=== PATIENT | male | born 1955 | race Caucasian/White ===

== ENCOUNTER → 2016-07-06 | Outpatient (CLI) | payer OTHER ==
[~2016-07-06] MED LIST: /OXAZ10CA PO; AMLO10TA2 PO; FOLITAB11 PO; IBUP600T26 PO; LISI40TAB PO; NEUR300C PO; NICO21PAT TD; VITA100T2 PO; VITMTA PO
--- NOTE | 2016-07-06 10:42 | REP ---
ULTRASOUND OF THE ABDOMINAL AORTA: Real-time sonographic evaluation of the abdominal aorta performed and compared to a prior study of 10/17/2015. There is no significant change when compared to the prior exam. The proximal abdominal aorta measures 1.8 x 2.8 cm, mid aspect 2.4 x 2.6 cm, and distally, there is mild aneurysmal dilatation, 4.2 x 3.5 cm. This extends for a length of about 7 to 8 cm. The common iliac arteries are slightly ectatic, right measuring 1.1 x 1.3 cm and the left 1.1 x 1.4 cm. Thrombus is seen in the aneurysm with residual patent lumen 2.1 x 3.5 cm. The study is somewhat limited due to overlying bowel gas. IMPRESSION: Fusiform aneurysm, distal abdominal aorta appears essentially unchanged compared to the prior study of 10/17/2015. It measures 4.2 x 3.5 cm. Signed by Nayan Bell MD 07/06/2016 01:13 P
== END ==
LOC: M RAD 08:44
PROVIDERS: ATTEND Surgery
DX: I71.4 Abdominal aortic aneurysm, without rupture (principal)

== ENCOUNTER → 2017-03-13 | Outpatient (CLI) | payer OTHER ==
--- NOTE | 2017-03-13 14:04 | REP ---
Left knee series: Five views. History: Knee joint pain. Findings: Five views of the left knee demonstrate mild articular spurring at the superior pole the patella on lateral radiograph. There is mild vascular calcification. Bones, joints and soft tissues are otherwise unremarkable. Impression: Mild patellar spurring. Vascular calcification. No significant change from the May 18, 2014 prior study. Signed by Ash Brown MD 03/13/2017 03:55 P
== END ==
LOC: M RAD 12:48
PROVIDERS: ATTEND Family Medicine Addiction Medicine
DX: M25.562 Pain in left knee (principal)

== ENCOUNTER → 2017-07-18 | Outpatient (CLI) | payer OTHER | LOC: M RAD 09:10 | DX: I71.4 Abdominal aortic aneurysm, without rupture (principal) | CPT/HCPCS: 76775 ==

== ENCOUNTER 2017-12-12 18:28 | Emergency (ER) | payer OTHER ==
[2017-12-12] MEDS: ADACEL/BOOSTRIX VACCINE (DIPHTH/PERTUSS/ACELL/TETANUS)0.5ML SYR (90715) IM (20:45)
[2017-12-12] MEDS: ERYTHROMYCIN OPHTH OINT OD (20:45)
[2017-12-12] MEDS: TETRACAINE 0.5% OPHTH SOLN 4ML OD (20:45)
[2017-12-12] MEDS: DERMABOND TOPICAL SKIN ADHESIVE TOP (21:15)
== END 2017-12-12 21:45 | disposition home or self-care (01) ==
LOC: M ED 18:28
DX: S02.31XA Fracture of orbital floor, right side, initial encounter for closed fracture (principal); S01.81XA Laceration without foreign body of other part of head, initial encounter; Y04.8XXA Assault by other bodily force, initial encounter; Y92.89 Other specified places as the place of occurrence of the external cause; F17.210 Nicotine dependence, cigarettes, uncomplicated; Z79.899 Other long term (current) drug therapy
CPT/HCPCS: 90715

== ENCOUNTER → 2018-03-19 | Outpatient (REF) | LOC: M SMT 13:21 | DX: Z00.00 Encounter for general adult medical examination without abnormal findings (principal) ==

== ENCOUNTER → 2018-10-07 | Outpatient (CLI) | payer OTHER ==
[~2018-10-07] MED LIST changes: -/OXAZ10CA PO; -AMLO10TA2 PO; +AMLO10TA5 PO; +BACL10TA2 PO; +CETI10TA PO; +CHOL400T PO; +CLEO300C2 PO; +D3400CAP PO; +ERYT1OIN26 OD; +GABA600T4 PO; +LISI-538 PO; +LISI40TA52 PO; -LISI40TAB PO; +MULTCAP PO; +NICO21DI3 TD; -NICO21PAT TD; +OXAZ10CA25 PO
--- NOTE | 2018-10-07 17:28 | REP ---
MR LUMBAR SPINE WITHOUT CONTRAST: HISTORY: Radiculopathy. COMPARISON: 11/19/2015 Decreased signal intensity on T2-weighted images is present in the lumbar intervertebral discs. The discs are decreased in height. These findings are consistent with disc degeneration. There is no disc bulge or herniation at the L1-2 level. The L1 nerves exit the neural foramina without compression. A diffuse disc bulge is present at te L2-3 level. There is minimal compression of the thecal sac. The L2 nerves exit the neural foramina without compression. A diffuse disc bulge and small left paracentral disc protrusion are present at the L3-4 level. There is hypertrophy of the ligamenta flava and posterior articulating facets. These findings produce minimal central canal stenosis. The L3 nerves exit the neural foramina without compression. A diffuse disc bulge is present at the L4-5 level. There is hypertrophy of the ligamenta flava and posterior articulating facets. There findings produce mild central canal stenosis. The L4 nerves exit the neural foramina without compression. A diffuse disc bulge and small central disc extrusion are present at the L5-S1 level. There is minimal compression of the thecal sac. There is hypertrophy of the posterior articulating facets. There is compression of the left L5 nerve in the neural foramen. The right L5 nerve exits the neural foramen without compression. The conus medullaris is normal in appearance terminating at the level of the L1-2 intervertebral disc. A hemangioma is present in the S1 vertebral body. The anterior aspect of the lumbar vertebral bodies is not well seen. There is no definite signal abnormality in the lumbar vertebral bodies. IMPRESSION: 1. Diffuse disc bulge at the L2-3 level with minimal thecal sac compression. 2. Minimal central canal stenosis at the L3-4 level secondary to disc bulge, disc protrusion, ligamentous and facet hypertrophy. This is a new finding. 3. Mild central canal stenosis at the L4-5 level secondary to disc bulge, ligamentous and facet hypertrophy. 4. Diffuse disc bulge and small central disc extrusion at the L5-S1 level with minimal thecal sac compression. There is compression of the left L5 nerve in the neural foramen. There is no other significant change. Electronically Signed by Abbe Barnhart MD 10/08/2018 08:35 A
== END ==
LOC: M RAD 12:58
PROVIDERS: ATTEND Nurse Practitioner Family
DX: M51.26 Other intervertebral disc displacement, lumbar region (principal); M51.27 Other intervertebral disc displacement, lumbosacral region; M48.061 Spinal stenosis, lumbar region without neurogenic claudication

== ENCOUNTER → 2018-10-07 | Outpatient (CLI) | payer OTHER ==
[2018-10-07 16:24] LABS: ALBUMIN 2.9 GM/DL (3.2-5.2); ALT/SGPT 26 U/L (12-78); BILIRUBIN,TOTAL 1.7 MG/DL (0.2-1.0); BLOOD UREA NITROGEN 7 MG/DL (7-18); CALCIUM LEVEL 8.1 MG/DL (8.8-10.2); CARBON DIOXIDE LEVEL 25 MEQ/L (21-32); CHLORIDE LEVEL 111 MEQ/L (98-107); CHOLESTEROL LEVEL 100 MG/DL (<200); CHOLESTEROL RISK RATIO 3.571 (<5); CREATININE FOR GFR 0.76 MG/DL (0.70-1.30); GLOMERULAR FILTRATION RATE > 60.0 (>49); GLUCOSE, FASTING 87 MG/DL (70-100); HDL CHOLESTEROL 28 MG/DL (>40); LDL CHOLESTEROL 57 MG/DL (<100); NON-HDL-C 72 MG/DL; POTASSIUM SERUM 3.5 MEQ/L (3.5-5.1); SODIUM LEVEL 142 MEQ/L (136-145); TOTAL PROTEIN 7.1 GM/DL (6.4-8.2); TRIGLYCERIDES LEVEL 77 MG/DL (<150); URIC ACID 4.4 MG/DL (3.5-7.2)
== END ==
LOC: M LAB 14:54
PROVIDERS: ATTEND Family Medicine Addiction Medicine
DX: E78.5 Hyperlipidemia, unspecified (principal)

== ENCOUNTER → 2018-10-09 | Outpatient (REF) | payer OTHER ==
[2018-10-09 17:51] LABS: BASO % 0.8 % (0.0-1.0); EOS # 0.1 10^3/uL (0.0-0.50); EOS % 2.5 % (0.0-3.0); HEMATOCRIT 36.5 % (42.0-52.0); LYMPH # 1.1 10^3/uL (1.5-4.5); LYMPH % 22.9 % (24.0-44.0); MEAN CORPUSCULAR HEMOGLOBIN 30.8 pg (27.0-33.0); MEAN CORPUSCULAR HGB CONC 32.9 g/dl (32.0-36.5); MEAN CORPUSCULAR VOLUME 93.6 fl (80.0-96.0); MONO # 0.6 10^3/uL (0.0-0.8); MONO % 13.3 % (0.0-5.0); NEUTROPHILS # 2.9 10^3/uL (1.8-7.7); NEUTROPHILS % 60.1 % (36.0-66.0); WHITE BLOOD COUNT 4.8 10^3/uL (4.0-10.0)
[2018-10-09 17:58] LABS: INR 1.37; PROTHROMBIN TIME 17.1 SECONDS (12.1-14.4)
[2018-10-09 17:59] LABS: PARTIAL THROMBOPLASTIN TIME 40.8 SECONDS (25.4-37.6)
[2018-10-09 18:06] LABS: ALBUMIN 3.1 GM/DL (3.2-5.2); ALT/SGPT 22 U/L (12-78); BILIRUBIN,TOTAL 1.8 MG/DL (0.2-1.0); BLOOD UREA NITROGEN 8 MG/DL (7-18); CALCIUM LEVEL 8.2 MG/DL (8.8-10.2); CARBON DIOXIDE LEVEL 23 MEQ/L (21-32); CHLORIDE LEVEL 112 MEQ/L (98-107); CREATININE FOR GFR 0.78 MG/DL (0.70-1.30); GLOMERULAR FILTRATION RATE > 60.0 (>49); GLUCOSE, FASTING 94 MG/DL (70-100); POTASSIUM SERUM 3.4 MEQ/L (3.5-5.1); PROSTATIC SPECIFIC AG MONITOR 1.68 NG/ML (< 4.00); SODIUM LEVEL 141 MEQ/L (136-145); TOTAL PROTEIN 6.9 GM/DL (6.4-8.2)
[2018-10-09 18:12] LABS: TOTAL 25(OH) VITAMIN D 19.5 NG/ML (30.0-100.0)
[2018-10-09 18:52] LABS: PLATELET COUNT, AUTOMATED 68 10^3/uL (150-450)
[2018-10-10 10:10] LABS: PTH INTACT 42.6 PG/ML (18.5-88.0)
[2018-10-10 10:21] LABS: HEPATITIS B SURFACE ANTIGEN NEGATIVE (NEGATIVE)
[2018-10-10 10:46] LABS: HEPATITIS C VIRUS ABY INDEX 0.1 INDEX (<0.8)
== END ==
LOC: M LAB REF 15:49
PROVIDERS: ATTEND Family Medicine Addiction Medicine
DX: R18.8 Other ascites (principal); E83.51 Hypocalcemia

== ENCOUNTER → 2018-10-10 | Outpatient (CLI) | payer OTHER ==
--- NOTE | 2018-10-10 08:20 | REP ---
Clinical: Ascites. Technique: Transabdominal ultrasound examination using curved array transducer. Findings: Cirrhotic changes to the liver along with recanalized umbilical vein identified. Large amount of abdominal ascites noted throughout the visualized abdomen. Chronic gallbladder wall thickening is appreciated without gallstones. No biliary ductal dilatation is appreciated and the common bile duct measures 5.7 mm diameter. The pancreas is incompletely evaluated due to interposed bowel gas. The right kidney measures 12.2 x 5.7 x 4.8 cm without hydronephrosis. Impression: 1. Cirrhosis. 2. Large amount of abdominal ascites. Electronically Signed by Luciano Guzman MD 10/10/2018 08:12 A
== END ==
LOC: M RAD 07:08
PROVIDERS: ATTEND Family Medicine Addiction Medicine
DX: R18.8 Other ascites (principal); K74.60 Unspecified cirrhosis of liver

== ENCOUNTER → 2018-10-23 | Outpatient (CLI) | payer OTHER ==
--- NOTE | 2018-10-23 20:36 | REP ---
Ultrasound-guided paracentesis The procedure was performed by JEISON Doss, under the direct supervision of Dr. Brown. The risks and benefits of the procedure were explained to the patient and informed consent was obtained both verbally and written. Directly prior to the start of the procedure, a formal timeout was completed in the procedure room. Under ultrasound guidance, the largest pocket of fluid in the left flank was localized and skin was marked. The skin was then prepped and draped in a sterile fashion. 10 ml of 1% lidocaine was used as a local anesthetic. Using ultrasound guidance, an 8-Surinamese multiphase side-hole catheter was inserted using trocar technique. 15,350 mL of yellow colored fluid was withdrawn and discarded. The patient tolerated the procedure well and there were no immediate complications. After the appropriate monitored convalescence the patient was discharged from the department. Reviewed by JEISON Gamez 10/23/2018 01:56 P Electronically Signed by Ash Brown MD 10/23/2018 08:28 P
== END ==
LOC: M RADPRO 10:48
PROVIDERS: ATTEND Family Medicine Addiction Medicine
DX: R18.8 Other ascites (principal)

== ENCOUNTER → 2018-11-04 | Outpatient (CLI) | payer OTHER ==
--- NOTE | 2018-11-13 08:56 | REP ---
Ultrasound-guided paracentesis The procedure was performed under the direct supervision of Dr. Bell. The risks and benefits of the procedure were explained to the patient and informed consent was obtained. The largest pocket of fluid was localized in the right flank using ultrasound guidance. The skin was prepped and draped in a sterile fashion. 1% lidocaine was used as a local anesthetic. An 8-Persian multi side-hole catheter was inserted using trocar technique. 13,100 ml of yellow fluid was withdrawn and discarded. The patient tolerated the procedure well and there were no immediate complications. After the appropriate amount of monitored convalescence the patient was discharged from the department. Reviewed by JEISON Amaya 11/04/2018 04:00 P Electronically Signed by Nayan Bell MD 11/04/2018 04:11 P
== END ==
LOC: M RADPRO 13:29
PROVIDERS: ATTEND Family Medicine Addiction Medicine
DX: K70.31 Alcoholic cirrhosis of liver with ascites (principal); Z79.82 Long term (current) use of aspirin; Z79.899 Other long term (current) drug therapy

== ENCOUNTER → 2018-11-12 | Outpatient (CLI) | payer MEDICAID, OTHER ==
--- NOTE | 2018-11-12 20:08 | REP ---
Ultrasound-guided paracentesis The procedure was performed by JEISON Doss, under the direct supervision of Dr. Bell. The risks and benefits of the procedure were explained to the patient and informed consent was obtained both verbally and written. Directly prior to the start of the procedure, a formal timeout was completed in the procedure room. Under ultrasound guidance, the largest pocket of fluid in the left flank was localized and skin was marked. The skin was then prepped and draped in a sterile fashion. 10 ml of 1% lidocaine was used as a local anesthetic. Using ultrasound guidance, an 8-Setswana multiphase side-hole catheter was inserted using trocar technique. 11,900 mL of clear yellow colored fluid was withdrawn and discarded. The patient tolerated the procedure well and there were no immediate complications. After the appropriate monitored convalescence the patient was discharged from the department. Reviewed by JEISON Gamez 11/12/2018 03:25 P Electronically Signed by Nayan Bell MD 11/12/2018 07:59 P
== END ==
LOC: M RADPRO 13:17
PROVIDERS: ATTEND Family Medicine Addiction Medicine
DX: R18.8 Other ascites (principal); Z79.899 Other long term (current) drug therapy

== ENCOUNTER → 2018-11-19 | Outpatient (CLI) | payer OTHER, MEDICAID ==
--- NOTE | 2018-11-19 18:20 | REP ---
Ultrasound-guided paracentesis The procedure was performed by JEISON Doss, under the direct supervision of Dr. Brown. The risks and benefits of the procedure were explained to the patient and informed consent was obtained both verbally and written. Directly prior to the start of the procedure, a formal timeout was completed in the procedure room. Under ultrasound guidance, the largest pocket of fluid in the right flank was localized and skin was marked. The skin was then prepped and draped in a sterile fashion. 10 ml of 1% lidocaine was used as a local anesthetic. Using ultrasound guidance, an 8-Japanese multi side-hole catheter was inserted using trocar technique. 10,850 mL of clear yellow colored fluid was withdrawn and discarded. The patient tolerated the procedure well and there were no immediate complications. After the appropriate monitored convalescence the patient was discharged from the department. Reviewed by JEISON Gamez 11/19/2018 02:52 P Electronically Signed by Ash Brown MD 11/19/2018 06:11 P
== END ==
LOC: M RADPRO 13:04
PROVIDERS: ATTEND Family Medicine Addiction Medicine
DX: R18.8 Other ascites (principal); K70.31 Alcoholic cirrhosis of liver with ascites; Z79.899 Other long term (current) drug therapy

== ENCOUNTER → 2018-11-25 | Outpatient (CLI) | payer OTHER, MEDICAID ==
[2018-11-25 13:02] LABS: BASO # 0.1 10^3/uL (0.0-0.2); BASO % 0.8 % (0.0-1.0); EOS # 0.2 10^3/uL (0.0-0.50); EOS % 2.7 % (0.0-3.0); HEMATOCRIT 37.7 % (42.0-52.0); HEMOGLOBIN 12.8 g/dl (13.5-17.5); LYMPH # 1.5 10^3/uL (1.5-4.5); LYMPH % 23.5 % (24.0-44.0); MEAN CORPUSCULAR HEMOGLOBIN 31.9 pg (27.0-33.0); MONO # 0.7 10^3/uL (0.0-0.8); NEUTROPHILS # 3.8 10^3/uL (1.8-7.7); NEUTROPHILS % 61.8 % (36.0-66.0); RED BLOOD COUNT 4.01 10^6/uL (4.30-6.10); WHITE BLOOD COUNT 6.2 10^3/uL (4.0-10.0)
[2018-11-25 13:13] LABS: INR 1.38; PROTHROMBIN TIME 17.2 SECONDS (12.1-14.4)
[2018-11-25 13:14] LABS: PARTIAL THROMBOPLASTIN TIME 37.3 SECONDS (25.4-37.6)
[2018-11-25 13:27] LABS: ALBUMIN 2.7 GM/DL (3.2-5.2); ALT/SGPT 36 U/L (12-78); BILIRUBIN,DIRECT 0.6 MG/DL (0.0-0.2); BILIRUBIN,TOTAL 1.6 MG/DL (0.2-1.0); BLOOD UREA NITROGEN 11 MG/DL (7-18); CALCIUM LEVEL 8.4 MG/DL (8.8-10.2); CARBON DIOXIDE LEVEL 25 MEQ/L (21-32); CHLORIDE LEVEL 107 MEQ/L (98-107); CREATININE FOR GFR 0.83 MG/DL (0.70-1.30); GLOMERULAR FILTRATION RATE > 60.0 (>49); GLUCOSE, FASTING 97 MG/DL (70-100); POTASSIUM SERUM 3.5 MEQ/L (3.5-5.1); SODIUM LEVEL 139 MEQ/L (136-145); TOTAL PROTEIN 6.7 GM/DL (6.4-8.2)
[2018-11-25 13:40] LABS: PLATELET COUNT, AUTOMATED 91 10^3/uL (150-450)
== END ==
LOC: M LAB 12:20
PROVIDERS: ATTEND Internal Medicine Gastroenterology
DX: K70.31 Alcoholic cirrhosis of liver with ascites (principal)

== ENCOUNTER → 2018-11-25 | Outpatient (CLI) | payer OTHER, MEDICAID ==
[2018-11-25 15:41] LABS: SOURCE, BODY FLUID ALBUMIN ASCITES; SOURCE, BODY FLUID TOT PROTEIN ASCITES; TOTAL PROTEIN, BODY FLUID 0.8 G/DL (NOT ESTABLISHED)
[2018-11-25 15:59] LABS: APPEARANCE, BODY FLUID HAZY (CLEAR); ASCITES FL COLOR COLORLESS (COLORLESS); SOURCE, BODY FLUID ASCITES
--- NOTE | 2018-11-25 16:32 | REP ---
Ultrasound-guided paracentesis The procedure was performed by JEISON Doss, under the direct supervision of Dr. Bell. The risks and benefits of the procedure were explained to the patient and informed consent was obtained both verbally and written. Directly prior to the start of the procedure, a formal timeout was completed in the procedure room. Under ultrasound guidance, the largest pocket of fluid in the right flank was localized and skin was marked. The skin was then prepped and draped in a sterile fashion. 10 ml of 1% lidocaine was used as a local anesthetic. Using ultrasound guidance, an 8-Montserratian multi side-hole catheter was inserted using trocar technique. 9,800 mL of clear yellow colored fluid was withdrawn and discarded. 200 ml was sent to the lab for further analysis. A total of 10,000 ml was withdrawn. The patient tolerated the procedure well and there were no immediate complications. After the appropriate monitored convalescence the patient was discharged from the department. Reviewed by JEISON Gamez 11/25/2018 03:22 P Electronically Signed by Nayan Bell MD 11/25/2018 04:23 P
== END ==
LOC: M RADPRO 11:25
PROVIDERS: ATTEND Family Medicine Addiction Medicine
DX: K70.31 Alcoholic cirrhosis of liver with ascites (principal); D19.1 Benign neoplasm of mesothelial tissue of peritoneum

== ENCOUNTER → 2018-12-02 | Outpatient (CLI) | payer OTHER, MEDICAID ==
[~2018-12-02] MED LIST changes: +FURO40TA2 PO; +SPIR50TA4 PO
--- NOTE | 2018-12-02 15:53 | REP ---
Ultrasound-guided paracentesis The procedure was performed by JEISON Doss, under the direct supervision of Dr. Brown. The risks and benefits of the procedure were explained to the patient and informed consent was obtained both verbally and written. Directly prior to the start of the procedure, a formal timeout was completed in the procedure room. Under ultrasound guidance, the largest pocket of fluid in the left flank was localized and skin was marked. The skin was then prepped and draped in a sterile fashion. 10 ml of 1% lidocaine was used as a local anesthetic. Using ultrasound guidance, an 8-Northern Irish multi side-hole catheter was inserted using trocar technique. 8,400 mL of dark red tinged colored fluid was withdrawn and discarded. The patient tolerated the procedure well and there were no immediate complications. After the appropriate monitored convalescence the patient was discharged from the department. Reviewed by JEISON Gamez 12/02/2018 02:22 P Electronically Signed by Ash Brown MD 12/02/2018 03:44 P
== END ==
LOC: M RADPRO 11:29
PROVIDERS: ATTEND Family Medicine Addiction Medicine
DX: K70.31 Alcoholic cirrhosis of liver with ascites (principal); Z79.899 Other long term (current) drug therapy

== ENCOUNTER → 2018-12-04 | Outpatient (CLI) | payer MEDICAID ==
[~2018-12-04] MED LIST changes: -FURO40TA2 PO; -SPIR50TA4 PO
[2018-12-04 14:30] LABS: BASO # 0.1 10^3/uL (0.0-0.2); BASO % 0.9 % (0.0-1.0); EOS # 0.3 10^3/uL (0.0-0.50); EOS % 4.2 % (0.0-3.0); HEMATOCRIT 37.3 % (42.0-52.0); HEMOGLOBIN 12.5 g/dl (13.5-17.5); LYMPH # 1.5 10^3/uL (1.5-4.5); LYMPH % 21.9 % (24.0-44.0); MEAN CORPUSCULAR HEMOGLOBIN 31.7 pg (27.0-33.0); MEAN CORPUSCULAR HGB CONC 33.5 g/dl (32.0-36.5); MEAN CORPUSCULAR VOLUME 94.7 fl (80.0-96.0); MONO # 0.8 10^3/uL (0.0-0.8); MONO % 12.5 % (0.0-5.0); NEUTROPHILS % 60.2 % (36.0-66.0); PLATELET COUNT, AUTOMATED 87 10^3/uL (150-450); RED BLOOD COUNT 3.94 10^6/uL (4.30-6.10); WHITE BLOOD COUNT 6.6 10^3/uL (4.0-10.0)
[2018-12-04 14:57] LABS: BLOOD UREA NITROGEN 15 MG/DL (7-18); CALCIUM LEVEL 8.1 MG/DL (8.8-10.2); CARBON DIOXIDE LEVEL 28 MEQ/L (21-32); CHLORIDE LEVEL 105 MEQ/L (98-107); CREATININE FOR GFR 0.89 MG/DL (0.70-1.30); GLOMERULAR FILTRATION RATE > 60.0 (>49); GLUCOSE, FASTING 117 MG/DL (70-100); SODIUM LEVEL 139 MEQ/L (136-145)
== END ==
LOC: M LAB 14:01
PROVIDERS: ATTEND Internal Medicine Gastroenterology
DX: K70.31 Alcoholic cirrhosis of liver with ascites (principal)

== ENCOUNTER → 2018-12-09 | Outpatient (CLI) | payer OTHER, MEDICAID ==
[~2018-12-09] MED LIST changes: +FOLI1TAB11 PO; +FURO40TA2 PO; +SPIR50TA4 PO
--- NOTE | 2018-12-09 16:07 | REP ---
Ultrasound-guided paracentesis The procedure was performed by JEISON Doss, under the direct supervision of Dr. Bell. The risks and benefits of the procedure were explained to the patient and informed consent was obtained both verbally and written. Directly prior to the start of the procedure, a formal timeout was completed in the procedure room. Under ultrasound guidance, the largest pocket of fluid in the left flank was localized and skin was marked. The skin was then prepped and draped in a sterile fashion. 10 ml of 1% lidocaine was used as a local anesthetic. Using ultrasound guidance, an 8-Setswana multi side-hole catheter was inserted using trocar technique. 7,000 mL of dark yellow colored fluid was withdrawn and discarded. The patient tolerated the procedure well and there were no immediate complications. After the appropriate monitored convalescence the patient was discharged from the department. Reviewed by JEISON Gamez 12/09/2018 02:54 P Electronically Signed by Nayan Bell MD 12/09/2018 03:58 P
== END ==
LOC: M RADPRO 11:41
PROVIDERS: ATTEND Family Medicine Addiction Medicine
DX: K70.31 Alcoholic cirrhosis of liver with ascites (principal); Z79.899 Other long term (current) drug therapy

== ENCOUNTER → 2018-12-15 | Outpatient (CLI) | payer OTHER ==
[~2018-12-15] MED LIST changes: +VITAMIN B1 PO
[2018-12-15 13:49] LABS: BLOOD UREA NITROGEN 23 MG/DL (7-18); CALCIUM LEVEL 8.4 MG/DL (8.8-10.2); CARBON DIOXIDE LEVEL 27 MEQ/L (21-32); CHLORIDE LEVEL 103 MEQ/L (98-107); CREATININE FOR GFR 0.95 MG/DL (0.70-1.30); GLOMERULAR FILTRATION RATE > 60.0 (>49); GLUCOSE, FASTING 102 MG/DL (70-100); POTASSIUM SERUM 3.8 MEQ/L (3.5-5.1); SODIUM LEVEL 137 MEQ/L (136-145)
== END ==
LOC: M LAB 12:54
PROVIDERS: ATTEND Internal Medicine Gastroenterology
DX: K70.31 Alcoholic cirrhosis of liver with ascites (principal)

== ENCOUNTER → 2018-12-17 | Outpatient (CLI) | payer OTHER ==
[2018-12-17 14:32] VITALS: BP 114/70
--- NOTE | 2018-12-17 20:38 | REP ---
Ultrasound-guided paracentesis The procedure was performed by JEISON Doss, under the direct supervision of Dr. Bell. The risks and benefits of the procedure were explained to the patient and informed consent was obtained both verbally and written. Directly prior to the start of the procedure, a formal timeout was completed in the procedure room. Under ultrasound guidance, the largest pocket of fluid in the right flank was localized and skin was marked. The skin was then prepped and draped in a sterile fashion. 10 ml of 1% lidocaine was used as a local anesthetic. Using ultrasound guidance, an 8-Lithuanian multi side-hole catheter was inserted using trocar technique. 4,700 mL of dark yellow colored fluid was withdrawn and discarded. The patient tolerated the procedure well and there were no immediate complications. After the appropriate monitored convalescence the patient was discharged from the department. Reviewed by JEISON Gamez 12/17/2018 04:10 P Electronically Signed by Nayan Bell MD 12/17/2018 08:29 P
== END ==
LOC: M RADPRO 12:43 → EEVIPCON 12:43
PROVIDERS: ATTEND Family Medicine Addiction Medicine
DX: K70.31 Alcoholic cirrhosis of liver with ascites (principal); Z79.899 Other long term (current) drug therapy

== ENCOUNTER 2018-12-23 11:40 | Outpatient (CLI) | payer OTHER ==
[~2018-12-23 11:40] MED LIST changes: -VITAMIN B1 PO
[2018-12-23] MEDS ORDERED: VITAMIN B1 PO (12:58)
[2018-12-23 14:11] VITALS: BP 108/63
--- NOTE | 2018-12-23 17:31 | REP ---
Ultrasound-guided paracentesis The procedure was performed by JEISON Doss, under the direct supervision of Dr. Bell. The risks and benefits of the procedure were explained to the patient and informed consent was obtained both verbally and written. Directly prior to the start of the procedure, a formal timeout was completed in the procedure room. Under ultrasound guidance, the largest pocket of fluid in the right flank was localized and skin was marked. The skin was then prepped and draped in a sterile fashion. 10 ml of 1% lidocaine was used as a local anesthetic. Using ultrasound guidance, an 8-Ghanaian multi side-hole catheter was inserted using trocar technique. 3,950 mL of cloudy yellow colored fluid was withdrawn and discarded. The patient tolerated the procedure well and there were no immediate complications. After the appropriate monitored convalescence the patient was discharged from the department. Reviewed by JEISON Gamez 12/23/2018 02:41 P Electronically Signed by Nayan Bell MD 12/23/2018 05:23 P
[2019-02-06] MEDS ORDERED: ESSETAB4 PO (15:11)
[2019-02-06] MEDS ORDERED: THIA100T7 PO (15:11)
== END 2018-12-23 14:23 | disposition home or self-care (01) ==
LOC: M RADPRO 11:40
PROVIDERS: ATTEND Family Medicine Addiction Medicine
DX: R18.8 Other ascites (principal)

== ENCOUNTER 2018-12-29 12:33 | Day surgery (SDC) | payer OTHER ==
[~2018-12-29] VITALS: Ht 182.9 cm; Wt 76.2 kg
[~2018-12-29 12:33] MED LIST changes: +LIDOCAINE 2% INJ 100 MG/5 ML SDV (FOR ANES.) As Ordered ONE; +NS 1,000 ML IV ONE; +PROPOFOL 200 MG/20 ML VIAL As Ordered ONE; +VITAMIN B1 PO
[2018-12-29] MEDS ORDERED: fentaNYL 100 MCG/2 ML INJECTION (J3010) As Ordered ONE (14:30)
--- NOTE | 2018-12-29 14:56 | ROOR ---
Patient Name: Matt Lozano Procedure Date: 12/29/2018 2:21 PM Date of : 1955 Age: 63 Room: [facility] Gender: Male Note Status: Finalized Procedure: Upper GI endoscopy Indications: Cirrhosis rule out esophageal varices Providers: Luis Franco MD Referring MD: Ish GARSIA MD Requesting Provider: Medicines: Monitored Anesthesia Care Complications: No immediate complications. Procedure: Pre-Anesthesia Assessment: - Prior to the procedure, a History and Physical was performed, and patient medications and allergies were reviewed. The patient is competent. The risks and benefits of the procedure and the sedation options and risks were discussed with the patient. All questions were answered and informed consent was obtained. Patient identification and proposed procedure were verified by the physician, the nurse and the anesthesiologist in the procedure room. Mental Status Examination: alert and oriented. Airway Examination: normal oropharyngeal airway and neck mobility. Respiratory Examination: clear to auscultation. CV Examination: normal. Prophylactic Antibiotics: The patient does not require prophylactic antibiotics. Prior Anticoagulants: The patient has taken no previous anticoagulant or antiplatelet agents. ASA Grade Assessment: III - A patient with severe systemic disease. After reviewing the risks and benefits, the patient was deemed in satisfactory condition to undergo the procedure. The anesthesia plan was to use monitored anesthesia care (MAC). Immediately prior to administration of medications, the patient was re-assessed for adequacy to receive sedatives. The heart rate, respiratory rate, oxygen saturations, blood pressure, adequacy of pulmonary ventilation, and response to care were monitored throughout the procedure. The physical status of the patient was re-assessed after the procedure. The Endoscope was introduced through the mouth, and advanced to the second part of duodenum. The upper GI endoscopy was accomplished without difficulty. The patient tolerated the procedure well. Findings: Grade II, large (> 5 mm) varices were found in the distal esophagus. Diffuse moderate inflammation characterized by adherent blood, erosions, friability and granularity was found in the gastric body and in the gastric antrum. Biopsies were taken with a cold forceps for Helicobacter pylori testing. For hemostasis, one hemostatic clip was successfully placed. There was no bleeding at the end of the procedure. Estimated blood loss was minimal. The duodenal bulb and second portion of the duodenum were normal. Impression: - Grade II and large (> 5 mm) esophageal varices. - Gastritis. Biopsied. Clip was placed. - Normal duodenal bulb and second portion of the duodenum. Recommendation: - Patient has a contact number available for emergencies. The signs and symptoms of potential delayed complications were discussed with the patient. Return to normal activities tomorrow. Written discharge instructions were provided to the patient. - Resume previous diet. - Continue present medications. - Await pathology results. - Return to GI clinic in [facility] (address [address] [place] [address], [place] [address]) in 4 -- 6 weeks. Please call GI clinic @ [phone] for apppointment date and time. - Return to primary care physician. Luis Franco MD Luis Franco MD 12/29/2018 2:56:43 PM Electronically signed by Luis Franco MD Number of Addenda: 0 Note Initiated On: 12/29/2018 2:21 PM Estimated Blood Loss: Estimated blood loss was minimal.
[2018-12-29 15:17] VITALS: BP 113/79
== END 2018-12-29 15:22 | disposition home or self-care (01) ==
LOC: M OPP 12:33
PROVIDERS: ATTEND Internal Medicine Gastroenterology
DX: K74.60 Unspecified cirrhosis of liver (principal); I85.10 Secondary esophageal varices without bleeding; K29.70 Gastritis, unspecified, without bleeding
CPT/HCPCS: 43239; 88305; J3010

== ENCOUNTER → 2018-12-30 | Outpatient (CLI) | payer OTHER ==
[~2018-12-30] MED LIST changes: +ESSETAB4 PO; -LIDOCAINE 2% INJ 100 MG/5 ML SDV (FOR ANES.) As Ordered ONE; -NS 1,000 ML IV ONE; -PROPOFOL 200 MG/20 ML VIAL As Ordered ONE; +THIA100T7 PO
[2018-12-30 13:40] VITALS: BP 99/61
--- NOTE | 2018-12-30 17:09 | REP ---
Ultrasound-guided paracentesis The procedure was performed under the direct supervision of Dr. Bell. The risks and benefits of the procedure were explained to the patient and informed consent was obtained. The largest pocket of fluid was localized in the left lower quadrant using ultrasound guidance. The skin was prepped and draped in a sterile fashion. 1% lidocaine was used as a local anesthetic. An 8-Italian multi side-hole catheter was inserted using trocar technique. 3500 ml of clear yellow fluid was withdrawn and discarded. The patient tolerated the procedure well and there were no immediate complications. After the appropriate amount of monitored convalescence the patient was discharged from the department. Reviewed by JEISON Amaya 12/30/2018 04:49 P Electronically Signed by Nayan Bell MD 12/30/2018 05:00 P
== END ==
LOC: M IRPRO 11:48
PROVIDERS: ATTEND Radiology Diagnostic Radiology
DX: K70.31 Alcoholic cirrhosis of liver with ascites (principal)

== ENCOUNTER → 2019-01-06 | Outpatient (CLI) | payer OTHER ==
--- NOTE | 2019-01-06 16:44 | REP ---
Ultrasound-guided paracentesis The procedure was performed under the direct supervision of Dr. Brown. The risks and benefits of the procedure were explained to the patient and informed consent was obtained. The largest pocket of fluid was localized in the right flank using ultrasound guidance. The skin was prepped and draped in a sterile fashion. 1% lidocaine was used as a local anesthetic. Using ultrasound guidance an 8-Vietnamese multi side-hole catheter was inserted using trocar technique. 4800 ml of yellow fluid was withdrawn and discarded. The patient tolerated the procedure well and there were no immediate complications. After the appropriate amount of monitored convalescence the patient was discharged from the department. Reviewed by JEISON Amaya 01/06/2019 04:35 P Electronically Signed by Ash Brown MD 01/06/2019 04:35 P
== END ==
LOC: M IRPRO 11:47
PROVIDERS: ATTEND Family Medicine Addiction Medicine
DX: K70.31 Alcoholic cirrhosis of liver with ascites (principal)

== ENCOUNTER → 2019-01-13 | Outpatient (CLI) | payer OTHER ==
[~2019-01-13] MED LIST changes: -ESSETAB4 PO; -THIA100T7 PO
[2019-01-13 14:03] LABS: APPEARANCE, BODY FLUID HAZY (CLEAR); ASCITES FL COLOR YELLOW (COLORLESS); SOURCE, BODY FLUID ASCITES
[2019-01-13 14:14] LABS: SOURCE, BODY FLUID ALBUMIN ASCITES
[2019-01-13 14:15] VITALS: BP 106/71
--- NOTE | 2019-01-13 20:13 | REP ---
Ultrasound-guided paracentesis The procedure was performed by JEISON Doss, under the direct supervision of Dr. Bell. The risks and benefits of the procedure were explained to the patient and informed consent was obtained both verbally and written. Directly prior to the start of the procedure, a formal timeout was completed in the procedure room. Under ultrasound guidance, the largest pocket of fluid in the right flank was localized and skin was marked. The skin was then prepped and draped in a sterile fashion. 10 ml of 1% lidocaine was used as a local anesthetic. Using ultrasound guidance, an 8-Finnish multi side-hole catheter was inserted using trocar technique. 4,050 mL of yellow colored fluid was withdrawn and discarded. The patient tolerated the procedure well and there were no immediate complications. After the appropriate monitored convalescence the patient was discharged from the department. Reviewed by JEISON Gamez 01/13/2019 05:15 P Electronically Signed by Nayan Bell MD 01/13/2019 08:05 P
== END ==
LOC: M IRPRO 11:55
PROVIDERS: ATTEND Internal Medicine Gastroenterology
DX: K70.31 Alcoholic cirrhosis of liver with ascites (principal); R18.8 Other ascites
CPT/HCPCS: 49083; 82042; 87070; 87205; 89051; 96365; P9047

== ENCOUNTER → 2019-01-13 | Outpatient (CLI) | payer OTHER ==
[2019-01-13 12:47] LABS: BASO % 0.6 % (0.0-1.0); EOS # 0.1 10^3/uL (0.0-0.50); EOS % 2.5 % (0.0-3.0); HEMATOCRIT 37.1 % (42.0-52.0); HEMOGLOBIN 12.4 g/dl (13.5-17.5); LYMPH % 19.1 % (24.0-44.0); MEAN CORPUSCULAR HEMOGLOBIN 31.3 pg (27.0-33.0); MEAN CORPUSCULAR HGB CONC 33.4 g/dl (32.0-36.5); MEAN CORPUSCULAR VOLUME 93.7 fl (80.0-96.0); MONO # 0.6 10^3/uL (0.0-0.8); MONO % 12.1 % (0.0-5.0); NEUTROPHILS # 3.4 10^3/uL (1.8-7.7); NEUTROPHILS % 65.5 % (36.0-66.0); RED BLOOD COUNT 3.96 10^6/uL (4.30-6.10); WHITE BLOOD COUNT 5.1 10^3/uL (4.0-10.0)
[2019-01-13 12:50] LABS: PLATELET COUNT, AUTOMATED 80 10^3/uL (150-450)
[2019-01-13 13:14] LABS: ALBUMIN 2.7 GM/DL (3.2-5.2); ALT/SGPT 34 U/L (12-78); BILIRUBIN,DIRECT 0.3 MG/DL (0.0-0.2); BILIRUBIN,TOTAL 0.7 MG/DL (0.2-1.0); BLOOD UREA NITROGEN 21 MG/DL (7-18); CALCIUM LEVEL 9.1 MG/DL (8.8-10.2); CARBON DIOXIDE LEVEL 30 MEQ/L (21-32); CHLORIDE LEVEL 105 MEQ/L (98-107); GLOMERULAR FILTRATION RATE > 60.0 (>49); GLUCOSE, FASTING 132 MG/DL (70-100); MAGNESIUM LEVEL 2.2 MG/DL (1.8-2.4); POTASSIUM SERUM 4.1 MEQ/L (3.5-5.1); SODIUM LEVEL 139 MEQ/L (136-145); TOTAL PROTEIN 6.4 GM/DL (6.4-8.2)
[2019-01-13 13:18] LABS: FOLATE > 24.0 NG/ML; VITAMIN B12 LEVEL > 2000 PG/ML
== END ==
LOC: M LAB 12:03
PROVIDERS: ATTEND Internal Medicine Gastroenterology
DX: K70.31 Alcoholic cirrhosis of liver with ascites (principal)

== ENCOUNTER → 2019-01-27 | Outpatient (CLI) | payer OTHER ==
[~2019-01-27] MED LIST changes: +ESSETAB4 PO; +LACT10SO3 PO; +THIA100T7 PO; +VITA100054 PO; +XIFA550T PO
[2019-01-27 15:08] VITALS: BP 117/73
--- NOTE | 2019-01-28 09:27 | REP ---
Ultrasound-guided paracentesis The procedure was performed by JEISON Doss, under the direct supervision of Dr. Bell. The risks and benefits of the procedure were explained to the patient and informed consent was obtained both verbally and written. Directly prior to the start of the procedure, a formal timeout was completed in the procedure room. Under ultrasound guidance, the largest pocket of fluid in the left flank was localized and skin was marked. The skin was then prepped and draped in a sterile fashion. 10 ml of 1% lidocaine was used as a local anesthetic. Using ultrasound guidance, an 8-Spanish multi side-hole catheter was inserted using trocar technique. 2,000 mL of ankur colored fluid was withdrawn and discarded. The patient tolerated the procedure well and there were no immediate complications. After the appropriate monitored convalescence the patient was discharged from the department. Reviewed by JEISON Gamez 01/27/2019 03:51 P Electronically Signed by Nayan Bell MD 01/28/2019 09:19 A
== END ==
LOC: M IRPRO 13:38
PROVIDERS: ATTEND Radiology Diagnostic Radiology
DX: K70.31 Alcoholic cirrhosis of liver with ascites (principal)
CPT/HCPCS: 49083; 96365; P9047

== ENCOUNTER → 2019-01-27 | Outpatient (CLI) | payer OTHER ==
[~2019-01-27] MED LIST changes: -LACT10SO3 PO; -VITA100054 PO; -XIFA550T PO
[2019-01-27 14:06] LABS: BASO # 0.1 10^3/uL (0.0-0.2); EOS # 0.2 10^3/uL (0.0-0.50); EOS % 3.3 % (0.0-3.0); HEMATOCRIT 35.9 % (42.0-52.0); HEMOGLOBIN 12.2 g/dl (13.5-17.5); LYMPH % 19.8 % (24.0-44.0); MEAN CORPUSCULAR HEMOGLOBIN 32.4 pg (27.0-33.0); MEAN CORPUSCULAR VOLUME 95.2 fl (80.0-96.0); MONO # 0.6 10^3/uL (0.0-0.8); NEUTROPHILS % 62.7 % (36.0-66.0); RED BLOOD COUNT 3.77 10^6/uL (4.30-6.10); WHITE BLOOD COUNT 4.8 10^3/uL (4.0-10.0)
[2019-01-27 14:28] LABS: ALT/SGPT 38 U/L (12-78); BILIRUBIN,DIRECT 0.3 MG/DL (0.0-0.2); BILIRUBIN,TOTAL 0.7 MG/DL (0.2-1.0); BLOOD UREA NITROGEN 29 MG/DL (7-18); CALCIUM LEVEL 8.7 MG/DL (8.8-10.2); CARBON DIOXIDE LEVEL 24 MEQ/L (21-32); CHLORIDE LEVEL 109 MEQ/L (98-107); CREATININE FOR GFR 0.78 MG/DL (0.70-1.30); GLOMERULAR FILTRATION RATE > 60.0 (>49); GLUCOSE, FASTING 135 MG/DL (70-100); POTASSIUM SERUM 4.1 MEQ/L (3.5-5.1); SODIUM LEVEL 140 MEQ/L (136-145); TOTAL PROTEIN 6.6 GM/DL (6.4-8.2)
[2019-01-27 14:36] LABS: PLATELET COUNT, AUTOMATED 66 10^3/uL (150-450)
== END ==
LOC: M LAB 13:11
PROVIDERS: ATTEND Internal Medicine Gastroenterology
DX: K70.31 Alcoholic cirrhosis of liver with ascites (principal)

== ENCOUNTER → 2019-02-06 | Outpatient (CLI) | payer OTHER ==
[2019-02-06 14:50] VITALS: BP 103/66
--- NOTE | 2019-02-06 16:06 | REP ---
Ultrasound-guided paracentesis The procedure was performed under the direct supervision of Dr. Brown. The risks and benefits of the procedure were explained to the patient and informed consent was obtained. The largest pocket of fluid was localized in the right lower quadrant using ultrasound guidance. The skin was prepped and draped in a sterile fashion. 1% lidocaine was used as a local anesthetic. Using ultrasound guidance an 8-Cook Islander multi side-hole catheter was inserted using trocar technique. 1350 ml of pink colored fluid was withdrawn and discarded. The patient tolerated the procedure well and there were no immediate complications. After the appropriate amount of monitored convalescence the patient was discharged from the department. Reviewed by JEISON Amaya 02/06/2019 03:47 P Electronically Signed by Ash Brown MD 02/06/2019 03:58 P
== END ==
LOC: M IRPRO 12:57
PROVIDERS: ATTEND Internal Medicine Gastroenterology
DX: K70.31 Alcoholic cirrhosis of liver with ascites (principal)
CPT/HCPCS: 49083; 96365; P9047

== ENCOUNTER → 2019-02-16 | Outpatient (CLI) | payer OTHER ==
--- NOTE | 2019-02-16 19:22 | REP ---
LIMITED ABDOMINAL ULTRASOUND: Real-time sonographic evaluation of abdomen was performed. Mild free fluid is seen in the perihepatic region. There is not sufficient fluid present such that a therapeutic paracentesis would be beneficial to the patient. Therefore paracentesis is not performed. Electronically Signed by Nayan Bell MD 02/18/2019 09:58 A
== END ==
LOC: M IRPRO 12:57
PROVIDERS: ATTEND Internal Medicine Gastroenterology
DX: K70.31 Alcoholic cirrhosis of liver with ascites (principal)

== ENCOUNTER → 2019-02-17 | Outpatient (CLI) | payer OTHER ==
--- NOTE | 2019-02-17 10:43 | REP ---
ULTRASOUND ABDOMINAL AORTA: Real-time sonographic evaluation of abdominal aorta performed. There is again fusiform aneurysmal dilatation of the distal abdominal aorta with maximum AP diameter 4.3 cm and transverse 4.9 cm. Previously, on the study of 02/07/2018, these dimensions were 4.1 x 4.4 cm. Proximal abdominal aorta has maximum AP diameter 2.3 cm and mid aspect 2.1 cm. Main renal arteries and abdominal aorta at that level could not be visualized due to overlying bowel gas. Right common iliac artery measures 1.4 cm and left 1.1 cm in maximum AP dimension. Study is somewhat limited due to body habitus and bowel gas. IMPRESSION: Once again, there is fusiform aneurysmal dilatation of distal abdominal aorta noted with maximum AP diameter 4.3 cm, on prior study of 02/07/2018, it was 4.1 cm. Electronically Signed by Nayan Bell MD 02/18/2019 10:50 A
== END ==
LOC: M RAD 08:07
PROVIDERS: ATTEND Surgery
DX: I71.4 Abdominal aortic aneurysm, without rupture (principal)

== ENCOUNTER → 2019-03-02 | Outpatient (CLI) | payer OTHER ==
[2019-03-02 09:42] LABS: BASO % 0.6 % (0.0-1.0); EOS # 0.1 10^3/uL (0.0-0.5); EOS % 2.9 % (0.0-3.0); HEMATOCRIT 33.4 % (42.0-52.0); HEMOGLOBIN 11.6 g/dl (13.5-17.5); LYMPH # 0.9 10^3/uL (1.5-5.0); LYMPH % 18.3 % (24.0-44.0); MEAN CORPUSCULAR HEMOGLOBIN 32.5 pg (27.0-33.0); MEAN CORPUSCULAR HGB CONC 34.7 g/dl (32.0-36.5); MEAN CORPUSCULAR VOLUME 93.6 fl (80.0-96.0); MONO # 0.7 10^3/uL (0.0-0.8); MONO % 14.5 % (0.0-5.0); NEUTROPHILS # 3.1 10^3/uL (1.5-8.5); NEUTROPHILS % 63.5 % (36.0-66.0); RED BLOOD COUNT 3.57 10^6/uL (4.30-6.10); WHITE BLOOD COUNT 4.9 10^3/uL (4.0-10.0)
[2019-03-02 09:43] LABS: PLATELET COUNT, AUTOMATED 57 10^3/uL (150-450)
[2019-03-02 10:04] LABS: CREATININE,RANDOM URINE 42.3 MG/DL
[2019-03-02 10:07] LABS: ALT/SGPT 49 U/L (12-78); BILIRUBIN,DIRECT 0.4 MG/DL (0.0-0.2); BILIRUBIN,TOTAL 1.1 MG/DL (0.2-1.0); BLOOD UREA NITROGEN 26 MG/DL (7-18); CALCIUM LEVEL 8.9 MG/DL (8.8-10.2); CARBON DIOXIDE LEVEL 21 MEQ/L (21-32); CHLORIDE LEVEL 104 MEQ/L (98-107); CREATININE FOR GFR 1.08 MG/DL (0.70-1.30); GLOMERULAR FILTRATION RATE > 60.0 (>49); GLUCOSE, FASTING 186 MG/DL (70-100); POTASSIUM SERUM 3.9 MEQ/L (3.5-5.1); SODIUM LEVEL 134 MEQ/L (136-145); TOTAL PROTEIN 6.6 GM/DL (6.4-8.2)
== END ==
LOC: M LAB 08:45
PROVIDERS: ATTEND Internal Medicine Gastroenterology
DX: K70.31 Alcoholic cirrhosis of liver with ascites (principal)

== ENCOUNTER → 2019-03-17 | Outpatient (CLI) | payer OTHER ==
[2019-03-17 08:25] LABS: BASO % 0.8 % (0.0-1.0); EOS # 0.2 10^3/uL (0.0-0.5); EOS % 3.3 % (0.0-3.0); HEMATOCRIT 37.1 % (42.0-52.0); HEMOGLOBIN 12.3 g/dl (13.5-17.5); LYMPH # 1.3 10^3/uL (1.5-5.0); LYMPH % 25.6 % (24.0-44.0); MEAN CORPUSCULAR HEMOGLOBIN 31.4 pg (27.0-33.0); MEAN CORPUSCULAR HGB CONC 33.2 g/dl (32.0-36.5); MEAN CORPUSCULAR VOLUME 94.6 fl (80.0-96.0); MONO # 0.7 10^3/uL (0.0-0.8); MONO % 13.9 % (0.0-5.0); NEUTROPHILS # 2.9 10^3/uL (1.5-8.5); NEUTROPHILS % 56.2 % (36.0-66.0); RED BLOOD COUNT 3.92 10^6/uL (4.30-6.10); WHITE BLOOD COUNT 5.2 10^3/uL (4.0-10.0)
[2019-03-17 08:50] LABS: BLOOD UREA NITROGEN 34 MG/DL (7-18); CALCIUM LEVEL 9.7 MG/DL (8.8-10.2); CARBON DIOXIDE LEVEL 26 MEQ/L (21-32); CHLORIDE LEVEL 106 MEQ/L (98-107); CREATININE FOR GFR 1.21 MG/DL (0.70-1.30); GLOMERULAR FILTRATION RATE > 60.0 (>49); GLUCOSE, FASTING 103 MG/DL (70-100); MAGNESIUM LEVEL 2.1 MG/DL (1.8-2.4); PHOSPHORUS LEVEL 4.2 MG/DL (2.5-4.9); POTASSIUM SERUM 4.1 MEQ/L (3.5-5.1); SODIUM LEVEL 140 MEQ/L (136-145)
[2019-03-17 08:57] LABS: PLATELET COUNT, AUTOMATED 65 10^3/uL (150-450)
--- NOTE | 2019-03-17 09:15 | REP ---
The complete abdomen ultrasound in a patient with known cirrhosis: The patient has a prior abdomen/pelvis CT dated 11/21/2015. The gallbladder is distended. There is no cholelithiasis, gallbladder wall thickening or pericholecystic fluid. There is no intrahepatic or extrahepatic biliary duct dilatation. The common biliary duct measures 5.2 mm in diameter. The hepatic parenchyma demonstrates a very coarsened echotexture compatible with hepato biliary disease and cirrhosis. No hepatic mass is identified. The umbilical vein is patent. Epigastric gastric varices are identified. The main portal vein is mildly dilated measuring 15 mm in diameter. The pancreas is obscured by bowel gas. There is splenomegaly with the spleen measuring 15.8 by 7.6 x 16.7 cm for splenic index of 2005. The The right kidney measures 12.1 x 5.7 x 3.9 cm. Left kidney measures 13.5 of 5.3 x 5.8 cm. The kidneys are normal size. There are no renal calculi. There is no hydronephrosis. There are no solid or cystic renal masses. There is an aneurysm of the distal abdominal aorta measuring 4.8 cm transversely by 4.3 cm AP. The mid abdominal aorta measures 3.0 cm transversely by 2.2 cm AP. The proximal aorta is obscured by bowel gas. There is ascites surrounding the liver. Impression: Extremely coarsened hepatic echotexture compatible with the history of cirrhosis. There is no hepatic mass. No biliary duct dilatation. There is ascites surrounding the liver. Epigastric varices. The main portal vein is mildly dilated measuring 15 mm in diameter. Splenomegaly. Abdominal aortic aneurysm. Electronically Signed by Nayan Ramon MD 03/17/2019 09:07 A
== END ==
LOC: M RAD 07:40
PROVIDERS: ATTEND Internal Medicine Gastroenterology
DX: K70.31 Alcoholic cirrhosis of liver with ascites (principal); I85.10 Secondary esophageal varices without bleeding; R16.1 Splenomegaly, not elsewhere classified

== ENCOUNTER → 2019-04-20 | Outpatient (CLI) | payer OTHER ==
[~2019-04-20] MED LIST changes: +LACT10SO3 PO; +VITA100054 PO
[2019-04-20 12:53] LABS: ALBUMIN 3.2 GM/DL (3.2-5.2); ALT/SGPT 46 U/L (12-78); BILIRUBIN,TOTAL 0.9 MG/DL (0.2-1.0); BLOOD UREA NITROGEN 29 MG/DL (7-18); CARBON DIOXIDE LEVEL 28 MEQ/L (21-32); CHLORIDE LEVEL 102 MEQ/L (98-107); CHOLESTEROL LEVEL 141 MG/DL (<200); CHOLESTEROL RISK RATIO 2.764 (<5); CREATININE FOR GFR 1.07 MG/DL (0.70-1.30); GLOMERULAR FILTRATION RATE > 60.0 (>49); GLUCOSE, FASTING 113 MG/DL (70-100); HDL CHOLESTEROL 51 MG/DL (>40); LDL CHOLESTEROL 66 MG/DL (<100); NON-HDL-C 90 MG/DL; POTASSIUM SERUM 3.7 MEQ/L (3.5-5.1); SODIUM LEVEL 137 MEQ/L (136-145); TOTAL PROTEIN 7.1 GM/DL (6.4-8.2); TRIGLYCERIDES LEVEL 122 MG/DL (<150)
[2019-04-20 12:54] LABS: TOTAL 25(OH) VITAMIN D 30.9 NG/ML (30.0-100.0)
[2019-04-20 13:15] LABS: HEMOGLOBIN A1c 5.8 %
== END ==
LOC: M LAB 10:18
PROVIDERS: ATTEND Nurse Practitioner Family
DX: Z00.01 Encounter for general adult medical examination with abnormal findings (principal)

== ENCOUNTER → 2019-04-20 | Outpatient (CLI) | payer OTHER ==
[2019-04-20 12:28] LABS: BASO # 0.1 10^3/uL (0.0-0.2); BASO % 0.9 % (0.0-1.0); EOS # 0.2 10^3/uL (0.0-0.5); EOS % 2.8 % (0.0-3.0); HEMATOCRIT 36.8 % (42.0-52.0); HEMOGLOBIN 12.3 g/dl (13.5-17.5); LYMPH # 1.2 10^3/uL (1.5-5.0); LYMPH % 21.9 % (24.0-44.0); MEAN CORPUSCULAR HGB CONC 33.4 g/dl (32.0-36.5); MEAN CORPUSCULAR VOLUME 95.8 fl (80.0-96.0); MONO # 0.7 10^3/uL (0.0-0.8); MONO % 13.6 % (0.0-5.0); NEUTROPHILS # 3.2 10^3/uL (1.5-8.5); NEUTROPHILS % 60.4 % (36.0-66.0); RED BLOOD COUNT 3.84 10^6/uL (4.30-6.10); WHITE BLOOD COUNT 5.3 10^3/uL (4.0-10.0)
[2019-04-20 12:33] LABS: PLATELET COUNT, AUTOMATED 58 10^3/uL (150-450)
[2019-04-20 12:56] LABS: CREATININE,RANDOM URINE 21.6 MG/DL
[2019-04-20 13:07] LABS: ALBUMIN 3.2 GM/DL (3.2-5.2); ALT/SGPT 48 U/L (12-78); BILIRUBIN,DIRECT 0.4 MG/DL (0.0-0.2); BILIRUBIN,TOTAL 1.1 MG/DL (0.2-1.0); BLOOD UREA NITROGEN 30 MG/DL (7-18); CALCIUM LEVEL 8.7 MG/DL (8.8-10.2); CARBON DIOXIDE LEVEL 26 MEQ/L (21-32); CHLORIDE LEVEL 102 MEQ/L (98-107); CREATININE FOR GFR 1.12 MG/DL (0.70-1.30); GLOMERULAR FILTRATION RATE > 60.0 (>49); GLUCOSE, FASTING 114 MG/DL (70-100); POTASSIUM SERUM 3.7 MEQ/L (3.5-5.1); SODIUM LEVEL 137 MEQ/L (136-145); TOTAL PROTEIN 6.7 GM/DL (6.4-8.2)
== END ==
LOC: M LAB 10:13
PROVIDERS: ATTEND Internal Medicine Gastroenterology
DX: K70.31 Alcoholic cirrhosis of liver with ascites (principal)

== ENCOUNTER → 2019-05-12 | Outpatient (CLI) | payer OTHER, MEDICAID ==
[2019-05-12 14:54] LABS: HEMATOCRIT 42.4 % (42.0-52.0); HEMOGLOBIN 14.1 g/dl (13.5-17.5); MEAN CORPUSCULAR HEMOGLOBIN 31.4 pg (27.0-33.0); MEAN CORPUSCULAR HGB CONC 33.3 g/dl (32.0-36.5); MEAN CORPUSCULAR VOLUME 94.4 fl (80.0-96.0); RED BLOOD COUNT 4.49 10^6/uL (4.30-6.10); WHITE BLOOD COUNT 6.6 10^3/uL (4.0-10.0)
[2019-05-12 14:59] LABS: PLATELET COUNT, AUTOMATED 64 10^3/uL (150-450)
[2019-05-12 15:02] LABS: INR 1.36; PARTIAL THROMBOPLASTIN TIME 33.7 SECONDS (25.0-38.4); PROTHROMBIN TIME 16.5 SECONDS (11.8-14.0)
[2019-05-12 15:16] LABS: BLOOD UREA NITROGEN 24 MG/DL (7-18); CALCIUM LEVEL 9.5 MG/DL (8.8-10.2); CARBON DIOXIDE LEVEL 24 MEQ/L (21-32); CHLORIDE LEVEL 105 MEQ/L (98-107); CREATININE FOR GFR 1.06 MG/DL (0.70-1.30); GLOMERULAR FILTRATION RATE > 60.0 (>49); GLUCOSE, FASTING 64 MG/DL (70-100); POTASSIUM SERUM 3.8 MEQ/L (3.5-5.1); SODIUM LEVEL 138 MEQ/L (136-145)
[2019-05-13 10:39] LABS: HEPATITIS B SURFACE ANTIBODY POSITIVE (POSITIVE)
== END ==
LOC: M LAB 13:09
PROVIDERS: ATTEND Internal Medicine Gastroenterology
DX: I85.00 Esophageal varices without bleeding (principal)

== ENCOUNTER → 2019-05-18 | Outpatient (CLI) | payer MEDICAID, OTHER ==
[~2019-05-18] MED LIST changes: +XIFA550T PO
[2019-05-18 10:24] LABS: HEMATOCRIT 34.3 % (42.0-52.0); HEMOGLOBIN 11.9 g/dl (13.5-17.5); MEAN CORPUSCULAR HEMOGLOBIN 32.4 pg (27.0-33.0); MEAN CORPUSCULAR HGB CONC 34.7 g/dl (32.0-36.5); MEAN CORPUSCULAR VOLUME 93.5 fl (80.0-96.0); RED BLOOD COUNT 3.67 10^6/uL (4.30-6.10)
[2019-05-18 10:28] LABS: PLATELET COUNT, AUTOMATED 58 10^3/uL (150-450)
[2019-05-18 10:35] LABS: INR 1.35; PROTHROMBIN TIME 16.4 SECONDS (11.8-14.0)
[2019-05-18 10:36] LABS: PARTIAL THROMBOPLASTIN TIME 34.5 SECONDS (25.0-38.4)
--- NOTE | 2019-05-18 13:34 | ECGEPIP ---
[facility] Test Date: 2019-05-18 Pat Name: MATT REDD Department: Room: - Gender: Male Quality Assurance Director: KANDY : 1955 Requested By: Harris Alvarenga Order Number: [id number] Reading MD: Matt Garland Measurements Intervals [place] Rate: 77 P: 64 WV: 190 QRS: 35 QRSD: 121 T: 44 QT: 375 QTc: 425 Interpretive Statements SINUS RHYTHM QS V1-V3, cannot rule out old ANTERIOR MYOCARDIAL INFARCT No prior ECG available for comparison at the time of interpretation. Electronically Signed on 05-18-2019 13:34:43 EST by Matt Garland
== END ==
LOC: M LAB 09:15
PROVIDERS: ATTEND Surgery
DX: Z01.818 Encounter for other preprocedural examination (principal); K74.60 Unspecified cirrhosis of liver

== ENCOUNTER 2019-05-19 10:01 | Day surgery (SDC) | payer OTHER, MEDICAID ==
[~2019-05-19] VITALS: Ht 182.9 cm; Wt 71.2 kg
[~2019-05-19 10:01] MED LIST changes: +LIDOCAINE 1% MDV 20ML VIAL SQ PRN; -XIFA550T PO
[2019-05-19] MEDS ORDERED: ceFAZolin 1GM INJ (J0690 PER 500MG) As Ordered ONE (10:27)
[2019-05-19 10:42] LABS: HEMATOCRIT 37.7 % (42.0-52.0); HEMOGLOBIN 12.5 g/dl (13.5-17.5); MEAN CORPUSCULAR HEMOGLOBIN 31.7 pg (27.0-33.0); MEAN CORPUSCULAR HGB CONC 33.2 g/dl (32.0-36.5); MEAN CORPUSCULAR VOLUME 95.7 fl (80.0-96.0); RED BLOOD COUNT 3.94 10^6/uL (4.30-6.10); WHITE BLOOD COUNT 6.2 10^3/uL (4.0-10.0)
[2019-05-19] MEDS ORDERED: ceFAZolin SOD 1 GM in D5W MINI-BAG PLUS 50 ML IV ONE (10:45)
[2019-05-19 11:02] LABS: PLATELET COUNT, AUTOMATED 54 10^3/uL (150-450)
[2019-05-19] MEDS ORDERED: XIFA550T PO (11:10)
[2019-05-19] MEDS ORDERED: LR 1,000 ML IV ONE (11:45)
[2019-05-19 12:05] VITALS: BP 98/55
[2019-05-19 12:15] VITALS: BP 95/51
[2019-05-19] MEDS ORDERED: BUPIVACAINE LIPOSOME/PF 1.3% 20ML VIAL (13.3MG/ML)(EXPAREL)(C9290 PER1MG) As Ordered ONE (12:27)
[2019-05-19] MEDS ORDERED: BUPIVACAINE/EPIN 0.25% 30 ML VIAL As Ordered ONE (12:27)
[2019-05-19] MEDS ORDERED: BUPIVACAINE HCL 0.25% 10 ML VIAL As Ordered ONE (12:27)
[2019-05-19 13:01] VITALS: BP 93/54
[2019-05-19] MEDS ORDERED: fentaNYL 250 MCG/5 ML INJECTION (J3010) As Ordered ONE (13:32)
[2019-05-19] MEDS ORDERED: MIDAZOLAM INJ 2 MG/2 ML VIAL (J2250) As Ordered ONE (13:32)
[2019-05-19] MEDS ORDERED: ROCURONIUM BROMIDE 50 MG/5 ML VIAL As Ordered ONE ×2 (13:32→14:11)
[2019-05-19] MEDS ORDERED: dexameTHASONE 4 MG/ML 1ML VIAL (J1100) As Ordered ONE (13:32)
[2019-05-19] MEDS ORDERED: ONDANSETRON 4MG/2ML VIAL (J2405) As Ordered ONE (13:32)
[2019-05-19] MEDS ORDERED: PROPOFOL 200 MG/20 ML VIAL As Ordered ONE (13:32)
[2019-05-19] MEDS ORDERED: METOCLOPRAMIDE INJ 10MG/2ML VIAL (J2765) As Ordered ONE (13:32)
[2019-05-19] MEDS ORDERED: SUGAMMADEX SODIUM 500 MG/5 ML VIAL (BRIDION) As Ordered ONE (13:32)
[2019-05-19] MEDS ORDERED: LIDOCAINE 2% INJ 100 MG/5 ML SDV (FOR ANES.) As Ordered ONE (13:32)
[2019-05-19] MEDS ORDERED: ePHEDrine SULFATE 25 MG/5 ML(5MG/ML) SYRINGE As Ordered ONE (13:45)
[2019-05-19] MEDS ORDERED: DESFLURANE 240 ML INHALANT As Ordered ONE (15:25)
[2019-05-19] MEDS ORDERED: NEOSTIGMINE 10 MG/10 ML VIAL (J2710) As Ordered ONE (15:27)
[2019-05-19] MEDS ORDERED: GLYCOPYRROLATE INJ 0.2 MG/ML 2 ML VIAL As Ordered ONE (15:27)
[2019-05-19] MEDS ORDERED: ONDANSETRON 4MG/2ML VIAL (J2405) IV PRN (16:15)
[2019-05-19] MEDS ORDERED: LR 1,000 ML IV SCH ×2 (16:15→17:16)
[2019-05-19] MEDS ORDERED: oxyCODONE 5MG TAB PO PRN ×2 (16:15→17:16)
[2019-05-19] MEDS ORDERED: METOCLOPRAMIDE INJ 10MG/2ML VIAL (J2765) IV PRN (16:15)
[2019-05-19] MEDS ORDERED: MEPERIDINE INJ 25 MG/ML VIAL (J2175) IV PRN (16:15)
[2019-05-19] MEDS: fentaNYL 100 MCG/2 ML INJECTION (J3010) IV PRN ×2 (16:29→16:35)
[2019-05-19 18:35] VITALS: BP 150/78
--- NOTE | 2019-06-08 10:55 | RO ---
DATE OF OPERATION: 05/19/2019 PREOPERATIVE DIAGNOSES: 1. Right inguinal hernia. 2. Umbilical hernia. POSTOPERATIVE DIAGNOSES: 1. Right inguinal hernia. 2. Umbilical hernia. PROCEDURE: 1. Robotic-assisted laparoscopic right inguinal hernia repair with ProGrip mesh. 2. Robotic-assisted assisted laparoscopic umbilical hernia repair. SURGEON: Harris Edwards MD SWITCHBOARD WIRE WORKER HELPER: ANESTHESIA: General endotracheal anesthesia. ESTIMATED BLOOD LOSS: Minimal. FLUIDS: Crystalloid. BRIEF PROCEDURE SUMMARY: The patient was brought to the operating room, was given general anesthesia. After adequate anesthesia and preoperative antibiotics were given, the patient was prepped and draped in the usual sterile fashion. Next, an epigastric incision was made with skin knife. Blunt dissection was carried down to fascia. A Veress needle placed into the abdominal cavity insufflated to 15 mm pressure. A dilating 8 mm trocar was placed at this time and then a right upper quadrant and left upper quadrant 8 mm trocars were placed. There was some fluid within the pelvis, some minimal ascites. This was aspirated with the suction catheter. Once this was removed, there was a moderately large indirect inguinal hernia as well as a relatively small umbilical hernia. The camera was docked at this point. The patient was placed in a Trendelenburg position and the right inguinal area was dissected out in the following manner. First the peritoneum was taken down with monopolar cut scissors and the peritoneal flap was created. Blunt dissection was used to mobilize the indirect hernia. It was quite tenacious distally and onto the epididymis area. Eventually this was able to be mobilized adequately. There was some minimal oozing from the cord structures and I did place some José Miguel down into the inguinal canal for hemostasis, but other than this the peritoneum was nicely mobilized off Minor's, posterior aspect of pubis and off the cord structures. A ProGrip mesh was cut to the appropriate size, laid in place and then the peritoneum was closed over the top of this with running V-Loc suture. Next, the umbilical site was closed with a running #0 Stratafix and this closed quite nicely. It came together nicely without undue tension. All trocars were removed under direct visualization and #4-0 Vicryl was used to close all incisions. Steri-Strips and a dry sterile dressing was applied. The patient was awakened from his anesthesia, extubated, brought to the recovery room awake, alert and hemodynamically stable. Sponge and needle counts correct times two.
== END 2019-05-19 18:40 | disposition home or self-care (01) ==
LOC: M SDC 10:01
PROVIDERS: ATTEND Surgery
DX: K40.90 Unilateral inguinal hernia, without obstruction or gangrene, not specified as recurrent (principal); K42.9 Umbilical hernia without obstruction or gangrene; I71.2 Thoracic aortic aneurysm, without rupture; K70.30 Alcoholic cirrhosis of liver without ascites; R23.3 Spontaneous ecchymoses; R53.83 Other fatigue; M12.9 Arthropathy, unspecified; M51.26 Other intervertebral disc displacement, lumbar region; R06.83 Snoring; F17.210 Nicotine dependence, cigarettes, uncomplicated; Z91.013 Allergy to seafood; Z79.899 Other long term (current) drug therapy
CPT/HCPCS: 36415; 49650; 49652; 82330; 82947; 84132; 84295; 85014; 85027; 85049; 85055; 86850; 86900; 86901; 86920; C1781; C9290; J0690; J1100; J2250; J2405; J2710; J2765; J3010; P9034; P9045

== ENCOUNTER → 2019-06-19 | Outpatient (CLI) | payer OTHER ==
[~2019-06-19] MED LIST changes: -LIDOCAINE 1% MDV 20ML VIAL SQ PRN; +XIFA550T PO
[2019-06-19 10:06] LABS: BASO % 0.6 % (0.0-1.0); EOS # 0.1 10^3/uL (0.0-0.5); EOS % 2.9 % (0.0-3.0); HEMATOCRIT 36.7 % (42.0-52.0); HEMOGLOBIN 12.1 g/dl (13.5-17.5); LYMPH % 19.5 % (24.0-44.0); MEAN CORPUSCULAR HEMOGLOBIN 31.8 pg (27.0-33.0); MEAN CORPUSCULAR VOLUME 96.3 fl (80.0-96.0); MONO # 0.7 10^3/uL (0.0-0.8); MONO % 13.8 % (0.0-5.0); NEUTROPHILS # 3.1 10^3/uL (1.5-8.5); RED BLOOD COUNT 3.81 10^6/uL (4.30-6.10); WHITE BLOOD COUNT 4.9 10^3/uL (4.0-10.0)
[2019-06-19 10:10] LABS: PLATELET COUNT, AUTOMATED 65 10^3/uL (150-450)
[2019-06-19 10:29] LABS: ALBUMIN 3.3 GM/DL (3.2-5.2); ALT/SGPT 36 U/L (12-78); BILIRUBIN,DIRECT 0.4 MG/DL (0.0-0.2); BILIRUBIN,TOTAL 1.1 MG/DL (0.2-1.0); BLOOD UREA NITROGEN 25 MG/DL (7-18); CALCIUM LEVEL 9.1 MG/DL (8.8-10.2); CARBON DIOXIDE LEVEL 25 MEQ/L (21-32); CHLORIDE LEVEL 109 MEQ/L (98-107); GLOMERULAR FILTRATION RATE > 60.0 (>49); GLUCOSE, FASTING 129 MG/DL (70-100); POTASSIUM SERUM 4.2 MEQ/L (3.5-5.1); SODIUM LEVEL 139 MEQ/L (136-145); TOTAL PROTEIN 6.5 GM/DL (6.4-8.2)
[2019-06-19 11:16] LABS: CREATININE,RANDOM URINE 50.8 MG/DL
== END ==
LOC: M LAB 08:57
PROVIDERS: ATTEND Internal Medicine Gastroenterology
DX: K70.31 Alcoholic cirrhosis of liver with ascites (principal)

== ENCOUNTER → 2019-07-27 | Outpatient (REF) | payer OTHER ==
[2019-07-27 13:45] LABS: FOLATE 21.7 NG/ML
[2019-07-28 10:47] LABS: ALBUMIN 3.84 GM/DL (3.29-5.55); ALBUMIN % 54.9 % (55.8-66.1); ALPHA-1-GLOBULIN % 4.5 % (2.9-4.9); ALPHA-1-GLOBULINS 0.32 GM/DL (0.17-0.41); ALPHA-2-GLOBULINS 0.63 GM/DL (0.42-0.99); BETA-1-GLOBULINS 0.48 GM/DL (0.28-0.60); BETA-1-GLOBULINS % 6.9 % (4.7-7.2); BETA-2-GLOBULINS 0.46 GM/DL (0.19-0.55); BETA-2-GLOBULINS % 6.6 % (3.2-6.5); GAMMA GLOBULIN % 18.1 % (11.1-18.8); GAMMA GLOBULINS 1.27 GM/DL (0.65-1.58)
[2019-07-28 10:57] LABS: VITAMIN B12 LEVEL 1765 PG/ML
[2019-08-02 14:06] LABS: CERULOPLASMIN 30.6 mg/dL (16.0-31.0); MERCURY LEVEL 2.5 ug/L (0.0-14.9); VITAMIN B1 LEVEL WHOLE BLOOD 161.9 nmol/L (66.5-200.0); VITAMIN B6,PYRIDOXAL PHOSPHATE 24.8 ug/L (5.3-46.7); VITAMIN E(ALPHA TOCOPHEROL) 7.4 mg/L (9.0-29.0); VITAMIN E(GAMMA TOCOPHEROL) 4.3 mg/L (0.5-4.9)
== END ==
LOC: M LABNEURO 11:06
PROVIDERS: ATTEND Psychiatry & Neurology Neurology
DX: G62.9 Polyneuropathy, unspecified (principal)

== ENCOUNTER → 2019-09-08 | Outpatient (CLI) | payer OTHER ==
[~2019-09-08] MED LIST changes: +D31000CA4 PO; -ERYT1OIN26 OD; +ERYT5OIN25 OD
--- NOTE | 2019-09-08 09:52 | REP ---
RIGHT UPPER QUADRANT ULTRASOUND: Real-time sonographic evaluation sonographic evaluation of the right upper quadrant performed. Gallbladder is moderately distended with no stone or wall thickening. There is mild right upper quadrant ascites. There is no intrahepatic or extrahepatic biliary dilatation, common bile duct measuring 4 mm. Liver demonstrates coarsened heterogeneous increased echotexture with lobulated surface suggesting cirrhosis. There is a patent umbilical vein. Main portal vein is 14 mm, minimally dilated. No focal mass is seen of the liver or pancreas. Right kidney demonstrates no hydronephrosis with normal size 11.5 cm in length. Known abdominal aortic aneurysm is visualized with a maximum AP diameter of 4.0 cm. IMPRESSION: Cirrhotic appearance of the liver with no sonographic evidence of a liver mass. Mild right upper quadrant ascites. Patient umbilical vein. Known abdominal aortic aneurysm 4 cm in AP dimension. Electronically Signed by Nayan Bell MD 09/08/2019 10:30 A
== END ==
LOC: M RAD 08:12
PROVIDERS: ATTEND Internal Medicine Gastroenterology
DX: R18.8 Other ascites (principal); I71.4 Abdominal aortic aneurysm, without rupture; I85.00 Esophageal varices without bleeding; K70.30 Alcoholic cirrhosis of liver without ascites

== ENCOUNTER → 2019-10-24 | Outpatient (CLI) | payer OTHER | LOC: M LABSMTC 08:10 | PROVIDERS: ATTEND Anesthesiology | DX: Z01.818 Encounter for other preprocedural examination (principal); Z11.59 Encounter for screening for other viral diseases | CPT/HCPCS: C9803; U0003 ==

== ENCOUNTER 2019-10-27 06:08 | Day surgery (SDC) | payer OTHER ==
[~2019-10-27] VITALS: Ht 182.9 cm; Wt 72.6 kg
[2019-10-27] MEDS ORDERED: XIFA550T PO (06:38)
[2019-10-27 06:40] LABS: HEMATOCRIT 37.4 % (42.0-52.0); HEMOGLOBIN 12.6 g/dl (13.5-17.5); MEAN CORPUSCULAR HEMOGLOBIN 31.7 pg (27.0-33.0); MEAN CORPUSCULAR HGB CONC 33.7 g/dl (32.0-36.5); MEAN CORPUSCULAR VOLUME 94.2 fl (80.0-96.0); RED BLOOD COUNT 3.97 10^6/uL (4.30-6.10); WHITE BLOOD COUNT 5.2 10^3/uL (4.0-10.0)
[2019-10-27 06:47] LABS: PLATELET COUNT, AUTOMATED 75 10^3/uL (150-450)
[2019-10-27] MEDS ORDERED: ceFAZolin SOD 1 GM in D5W MINI-BAG PLUS 50 ML IV ONE (07:00)
[2019-10-27] MEDS ORDERED: LR 1,000 ML IV ONE (07:00)
[2019-10-27 07:01] LABS: INR 1.33; PROTHROMBIN TIME 16.2 SECONDS (11.8-14.0)
[2019-10-27] MEDS ORDERED: BUPIVACAINE HCL 0.25% 10ML VIAL As Ordered ONE (07:06)
[2019-10-27] MEDS ORDERED: BUPIVACAINE LIPOSOME/PF 1.3% 20ML VIAL (13.3MG/ML)(EXPAREL)(C9290 PER1MG) As Ordered ONE (07:06)
[2019-10-27] MEDS ORDERED: BUPIVACAINE/EPIN 0.25% 30 ML VIAL As Ordered ONE (07:07)
[2019-10-27] MEDS ORDERED: ROCURONIUM BROMIDE 50 MG/5 ML VIAL As Ordered ONE (07:18)
[2019-10-27] MEDS ORDERED: propofoL 200 MG/20 ML VIAL As Ordered ONE (07:18)
[2019-10-27] MEDS ORDERED: SUCCINYLCHOLINE 100 MG/5 ML SYRINGE (J0330) As Ordered ONE (07:18)
[2019-10-27] MEDS ORDERED: LIDOCAINE 2% 100MG/5ML SDV (FOR ANES.) As Ordered ONE (07:18)
[2019-10-27] MEDS ORDERED: fentaNYL 250 MCG/5 ML INJECTION (J3010) As Ordered ONE (07:19)
[2019-10-27] MEDS ORDERED: MIDAZOLAM INJ 2MG/2ML VIAL (J2250 PER 1MG) As Ordered ONE (07:20)
[2019-10-27] MEDS ORDERED: dexameTHASONE 4 MG/ML 1ML VIAL (J1100 PER 1MG) As Ordered ONE (08:11)
[2019-10-27] MEDS ORDERED: ONDANSETRON 4MG/2ML VIAL As Ordered ONE (08:11)
[2019-10-27] MEDS ORDERED: KETOROLAC 60 MG/2 ML VIAL As Ordered ONE (08:11)
[2019-10-27] MEDS ORDERED: SUGAMMADEX SODIUM 500 MG/5 ML VIAL (BRIDION) As Ordered ONE (08:13)
[2019-10-27] MEDS ORDERED: LR 1,000 ML IV SCH ×2 (08:45→09:00)
[2019-10-27] MEDS ORDERED: fentaNYL 100 MCG/2 ML INJECTION (J3010) IV PRN (08:45)
[2019-10-27] MEDS ORDERED: ONDANSETRON 4MG/2ML VIAL IV PRN (08:45)
[2019-10-27] MEDS ORDERED: PERCOCET 5MG/325MG TAB PO PRN (08:45)
[2019-10-27 10:50] VITALS: BP 159/70
[2019-10-27] MEDS ORDERED: traMADol 50 MG TAB PO SCH (12:00)
--- NOTE | 2019-10-28 02:07 | RO ---
DATE OF PROCEDURE: 10/27/2019 PREOPERATIVE DIAGNOSIS: Umbilical hernia. POSTOPERATIVE DIAGNOSIS: Umbilical hernia. PROCEDURE: Umbilical hernia repair with ventral patch. SURGEON: Harris Edwards Jr., MD VIDEO EDITOR: ANESTHESIA: General endotracheal anesthesia. ESTIMATED BLOOD LOSS: Minimal. FLUIDS: Crystalloid. BRIEF PROCEDURE SUMMARY: The patient was brought to the operating room and was given general anesthesia. After adequate anesthesia and preoperative antibiotics were given, the patient was prepped and draped in the usual sterile fashion. Next, a supraumbilical/curvilinear incision was made with a skin knife. Blunt dissection was carried down to hernia sac and fascia, and the hernia sac was mobilized off the fascia using combination of blunt dissection and electrocautery. Eventually, the base of the hernia sac was transected with electrocautery and the peritoneum was entered. Fascial defect was about a centimeter and a half to 1.8 cm. Thus, feeling posterior on the peritoneum side, there was no evidence of adhesions or masses or abnormalities present. Thus, a ventral patch was placed into the peritoneal cavity, making sure that this was abutting peritoneum circumferentially. The tails of the mesh were sutured superiorly and inferiorly with #0 Ethibond. #0 Ethibond was used to close the fascia with three figure-of-8 sutures, and the dermis was brought together with #3-0 Vicryl. #4-0 Vicryl was used to approximate the skin. Steri-Strips and a dry sterile dressing was applied, and the patient was awakened, extubated, brought to the recovery room, awake, alert, and hemodynamically stable. Sponge and needle counts correct times two.
== END 2019-10-27 11:00 | disposition home or self-care (01) ==
LOC: M SDC 06:08
PROVIDERS: ATTEND Surgery
DX: K42.9 Umbilical hernia without obstruction or gangrene (principal); I10 Essential (primary) hypertension; I71.4 Abdominal aortic aneurysm, without rupture; K70.31 Alcoholic cirrhosis of liver with ascites; Z91.013 Allergy to seafood; F17.218 Nicotine dependence, cigarettes, with other nicotine-induced disorders; Z79.899 Other long term (current) drug therapy
CPT/HCPCS: 36415; 49585; 85027; 85049; 85055; 85610; 85730; 86850; 86900; 86901; C1781; C9290; J0330; J0690; J1100; J1885; J2250; J2405; J3010

== ENCOUNTER → 2019-10-27 | Outpatient (REF) | payer OTHER ==
[2019-10-27 07:05] LABS: BASO % 0.6 % (0.0-1.0); EOS # 0.1 10^3/uL (0.0-0.5); EOS % 2.2 % (0.0-3.0); HEMATOCRIT 37.8 % (42.0-52.0); HEMOGLOBIN 12.5 g/dl (13.5-17.5); LYMPH # 0.8 10^3/uL (1.5-5.0); LYMPH % 14.3 % (24.0-44.0); MEAN CORPUSCULAR HEMOGLOBIN 31.2 pg (27.0-33.0); MEAN CORPUSCULAR HGB CONC 33.1 g/dl (32.0-36.5); MEAN CORPUSCULAR VOLUME 94.3 fl (80.0-96.0); MONO # 0.6 10^3/uL (0.0-0.8); MONO % 10.8 % (0.0-5.0); NEUTROPHILS # 3.9 10^3/uL (1.5-8.5); NEUTROPHILS % 71.7 % (36.0-66.0); RED BLOOD COUNT 4.01 10^6/uL (4.30-6.10); WHITE BLOOD COUNT 5.4 10^3/uL (4.0-10.0)
[2019-10-27 07:07] LABS: PLATELET COUNT, AUTOMATED 78 10^3/uL (150-450)
[2019-10-27 07:08] LABS: ALBUMIN 3.6 GM/DL (3.2-5.2); ALT/SGPT 44 U/L (12-78); BILIRUBIN,DIRECT 0.3 MG/DL (0.0-0.2); BILIRUBIN,TOTAL 0.8 MG/DL (0.2-1.0); BLOOD UREA NITROGEN 27 MG/DL (7-18); CARBON DIOXIDE LEVEL 24 MEQ/L (21-32); CHLORIDE LEVEL 109 MEQ/L (98-107); CREATININE FOR GFR 1.23 MG/DL (0.70-1.30); GLOMERULAR FILTRATION RATE > 60.0 (>49); GLUCOSE, FASTING 123 MG/DL (70-100); POTASSIUM SERUM 4.1 MEQ/L (3.5-5.1); SODIUM LEVEL 139 MEQ/L (136-145); TOTAL PROTEIN 7.5 GM/DL (6.4-8.2)
[2019-10-27 07:18] LABS: INR 1.29; PROTHROMBIN TIME 15.8 SECONDS (11.8-14.0)
[2019-10-27 07:19] LABS: PARTIAL THROMBOPLASTIN TIME 35.4 SECONDS (25.0-38.4)
== END ==
LOC: M LAB REF 06:49
PROVIDERS: ATTEND Internal Medicine Gastroenterology
DX: K70.30 Alcoholic cirrhosis of liver without ascites (principal)

== ENCOUNTER → 2020-01-08 | Outpatient (REF) | payer OTHER ==
[~2020-01-08] MED LIST changes: -AMLO10TA5 PO; +AMLO1TAB25 PO
== END ==
LOC: M LAB REF 06:46
PROVIDERS: ATTEND Specialist
DX: R59.0 Localized enlarged lymph nodes (principal)

== ENCOUNTER → 2020-01-22 | Outpatient (CLI) | payer OTHER ==
--- NOTE | 2020-03-03 09:58 | REP ---
CT OF THE ABDOMEN AND PELVIS WITHOUT IV OR ORAL CONTRAST: HISTORY: Abdominal aortic aneurysm without rupture. COMPARISON: CT study from 11/21/15. FINDINGS: Digital real estate salesperson views are noncontributory. There is a macronodular contour to the liver with some hepatic atrophy, consistent with cirrhosis. There is moderate splenic enlargement. There is mild diffuse abdominal ascites. The cirrhosis and splenomegaly and ascites findings are new. The spleen measures 15.1 cm in greatest dimension. No focal splenic lesion is seen. There is some gallbladder wall thickening. No focal hepatic lesion is observed. There are prominent portal venous collaterals throughout the upper abdomen and there is diffuse edema in the mesenteric and omental fat. There is mild multifocal small bowel mesenteric adenopathy, which is also a new finding. The small and large bowel loops are not dilated. No mass lesion is visible. There is extensive vascular calcification again noted. The previously noted abdominal aortic aneurysm is again visible. Its maximum anterior to posterior dimension has increased to 4.6 cm since 11/21/15, when it was measured at 4.0 cm. The aneurysm measures 4.7 cm in greatest right to left dimension. There is no evidence of retroperitoneal hemorrhage. No bony destructive lesion is seen. No other aneurysm is appreciated. IMPRESSION: 1. Infrarenal abdominal aortic aneurysm again noted, 4.6 x 4.7 cm in AP x transverse dimension respectively, increased in size from the 11/21/15 prior study. 2. Interval development of cirrhosis, portal hypertension and ascites pattern. 3. Mild small bowel mesenteric lymphadenopathy suspected in addition to portal venous collaterals. MTDD
== END ==
LOC: M RAD 11:00
PROVIDERS: ATTEND Specialist
DX: R59.0 Localized enlarged lymph nodes (principal); I71.4 Abdominal aortic aneurysm, without rupture

== ENCOUNTER → 2020-01-22 | Outpatient (CLI) | payer OTHER ==
[~2020-01-22] MED LIST changes: +ISOVUE-370 76% 100ML VIAL As Ordered ONE
== END ==
LOC: M RAD 11:00
PROVIDERS: ATTEND Surgery
DX: I71.4 Abdominal aortic aneurysm, without rupture (principal)

== ENCOUNTER → 2020-02-09 | Outpatient (CLI) | payer OTHER ==
[~2020-02-09] MED LIST changes: -ISOVUE-370 76% 100ML VIAL As Ordered ONE
[2020-02-09 13:22] LABS: HEMATOCRIT 34.1 % (42.0-52.0); HEMOGLOBIN 10.8 g/dl (13.5-17.5); MEAN CORPUSCULAR HEMOGLOBIN 29.3 pg (27.0-33.0); MEAN CORPUSCULAR HGB CONC 31.7 g/dl (32.0-36.5); MEAN CORPUSCULAR VOLUME 92.4 fl (80.0-96.0); PLATELET COUNT, AUTOMATED 144 10^3/uL (150-450); RED BLOOD COUNT 3.69 10^6/uL (4.30-6.10)
[2020-02-09 13:54] LABS: ALBUMIN 2.4 GM/DL (3.2-5.2); BILIRUBIN,DIRECT 0.8 MG/DL (0.0-0.2); BILIRUBIN,TOTAL 2.1 MG/DL (0.2-1.0); CALCIUM LEVEL 8.7 MG/DL (8.8-10.2); CREATININE FOR GFR 1.88 MG/DL (0.70-1.30); GLOMERULAR FILTRATION RATE 38.8 (>49); POTASSIUM SERUM 4.5 MEQ/L (3.5-5.1); TOTAL PROTEIN 6.6 GM/DL (6.4-8.2)
== END ==
LOC: M LAB 11:45
PROVIDERS: ATTEND Internal Medicine Gastroenterology
DX: K70.31 Alcoholic cirrhosis of liver with ascites (principal)

== ENCOUNTER 2020-02-14 13:47 | Inpatient (IN) | payer OTHER ==
[~2020-02-14] VITALS: Ht 182.9 cm; Wt 65.6 kg
[2020-02-14] MEDS ORDERED: NS 1,000 ML IV ONE ×2 (14:00→14:45)
[2020-02-14] MEDS ORDERED: LIDOCAINE 2% 5ML JELLY UROJET TOP ONE (14:00)
[2020-02-14 14:32] LABS: BASO % 0.1 % (0.0-1.0); EOS # 0.2 10^3/uL (0.0-0.5); EOS % 1.1 % (0.0-3.0); HEMATOCRIT 41.9 % (42.0-52.0); HEMOGLOBIN 13.2 g/dl (13.5-17.5); LYMPH # 0.6 10^3/uL (1.5-5.0); LYMPH % 4.6 % (24.0-44.0); MEAN CORPUSCULAR HEMOGLOBIN 28.9 pg (27.0-33.0); MEAN CORPUSCULAR HGB CONC 31.5 g/dl (32.0-36.5); MEAN CORPUSCULAR VOLUME 91.7 fl (80.0-96.0); MONO # 0.8 10^3/uL (0.0-0.8); NEUTROPHILS # 11.5 10^3/uL (1.5-8.5); NEUTROPHILS % 87.6 % (36.0-66.0); PLATELET COUNT, AUTOMATED 146 10^3/uL (150-450); RED BLOOD COUNT 4.57 10^6/uL (4.30-6.10); WHITE BLOOD COUNT 13.1 10^3/uL (4.0-10.0)
[2020-02-14] MEDS ORDERED: PIPERACILLIN/TAZOBACTAM SOD 4.5 GM in D5W MINI-BAG PLUS 50 ML IV ONE (15:00)
[2020-02-14 15:09] LABS: ACETAMINOPHEN LEVEL < 2.0 UG/ML (10.0-30.0); ALBUMIN 2.3 GM/DL (3.2-5.2); ALT/SGPT 25 U/L (12-78); AMYLASE < 2 U/L (25-115); BILIRUBIN,DIRECT 1.3 MG/DL (0.0-0.2); CK-MB VALUE MASS 2.9 NG/ML (<3.6); CPK CREATINE PHOSPHOKINASE 98 U/L (39-308); ETHYL ALCOHOL (ETHANOL) < 0.003 % (0.000-0.010); MB/CK RELATIVE INDEX 2.96 (< OR =4); SALICYLATE LEVEL < 1.7 MG/DL (5.0-30.0); TOTAL PROTEIN 6.5 GM/DL (6.4-8.2); TROPONIN I < 0.02 NG/ML (< 0.10)
--- NOTE | 2020-02-14 15:15 | REPVR ---
PROCEDURE INFORMATION: Exam: XR Chest, 1 View Exam date and time: 02/14/2020 2:43 PM Age: 64 years old Clinical indication: Altered mental status TECHNIQUE: Imaging protocol: XR of the chest Views: 1 view. COMPARISON: CT ANGIO CHEST 03/05/2013 10:00 PM FINDINGS: Tubes, catheters and devices: ECG leads/contacts overlie and partially obscure the anatomy. Lungs: No pulmonary consolidation or edema. Pleural space: No pleural effusion. No pneumothorax. Heart/Mediastinum: Heart size is within normal limits. Vasculature: Mild fusiform aneurysmal dilatation of the proximal descending thoracic aorta is redemonstrated. Bones/joints: No acute osseous abnormality. Soft tissues: Multiple skin fold opacities overlying the right lung are noted. IMPRESSION: 1. No radiographic evidence of acute cardiopulmonary disease. 2. Mild fusiform aneurysmal dilatation of the proximal descending thoracic aorta is redemonstrated. Electronically signed by: Ish Nguyễn On 02/14/2020 15:15:35 PM
--- NOTE | 2020-02-14 15:15 | REPVR ---
PROCEDURE INFORMATION: Exam: CT Head Without Contrast Exam date and time: 02/14/2020 2:46 PM Age: 64 years old Clinical indication: Coma or unconsciousness; Additional info: Altered ms TECHNIQUE: Imaging protocol: Computed tomography of the head without contrast. Radiation optimization: All CT scans at this facility use at least one of these dose optimization techniques: automated exposure control; mA and/or kV adjustment per patient size (includes targeted exams where dose is matched to clinical indication); or iterative reconstruction. COMPARISON: CT Head without contrast 12/12/2017 7:56 PM FINDINGS: Brain: The brain demonstrates stable mild volume loss. There is trace white matter hypodensity most consistent with chronic small vessel ischemic change. Ventricles: The ventricles and CSF spaces are unchanged in size, and normal for age. Bones/joints: No acute fracture. Sinuses: Visualized sinuses are unremarkable. No fluid levels. Mastoid air cells: Visualized mastoid air cells are well aerated. Soft tissues: Unremarkable. IMPRESSION: No acute intracranial abnormality. Electronically signed by: Ish Gil On 02/14/2020 15:15:12 PM
--- NOTE | 2020-02-14 15:37 | REPVR ---
PROCEDURE INFORMATION: Exam: CT Chest Without Contrast Exam date and time: 02/14/2020 2:46 PM Age: 64 years old Clinical indication: Altered mental status TECHNIQUE: Imaging protocol: Computed tomography of the chest without contrast. Coronal and sagittal reformats were created and reviewed. Radiation optimization: All CT scans at this facility use at least one of these dose optimization techniques: automated exposure control; mA and/or kV adjustment per patient size (includes targeted exams where dose is matched to clinical indication); or iterative reconstruction. COMPARISON: CT ANGIO CHEST 03/05/2013 10:00:18 PM FINDINGS: Thyroid: Unremarkable as visualized. Lungs: The trachea is unremarkable. There is a new 3.1 x 1.1 x 0.9 cm filling defect present dependently within the left mainstem bronchus (for example series 204, image 49). Mild bilateral upper lung predominant emphysema. No consolidation. Multiple new ill-defined ground-glass nodular opacities of the left upper lobe, the largest measuring 1.7 cm (for example series 204, image 56). Pleural space: No pneumothorax. No pleural effusion, mass or calcification. Heart: Heart size is within normal limits. No pericardial effusion. Mediastinal space: No abnormal esophageal dilation. No mediastinal mass. Pulmonary arteries: The main pulmonary arterial trunk is not enlarged. Aorta: Moderate aortic atherosclerosis. Aortic root calcifications are present. Stable fusiform aneurysmal dilatation of the proximal descending thoracic aorta measuring 3.7 cm in diameter, compared to 03/05/2013. Lymph nodes: Incompletely imaged right cervical chain lymphadenopathy. New right supraclavicular adenopathy measuring 1.1 cm in short axis. New bilateral axillary adenopathy. New left prevascular adenopathy. Bones/joints: Degenerative spine disease. Soft tissues: Increased bilateral retroareolar breast soft tissue consistent with increased gynecomastia. Other findings: Very small intraluminal gas within the right internal jugular vein and right ventricular outflow tract, presumably related to venous catheter access. IMPRESSION: 1. Multiple new left upper lobe ground-glass nodules. The findings may represent acute pulmonary infection/inflammation. Follow-up is recommended to ensure their resolution to exclude pulmonary neoplasm. Recommend chest CT at 3-6 months. Subsequent management based on the most suspicious nodule(s). (Sussy et al., Fleischner Society, 2017) 2. There is a new partially occlusive filling defect present within the left mainstem bronchus. This is nonspecific but may represent retained secretions. Attention to this on short-term follow-up chest CT is recommended to exclude an endobronchial mass. 3. Mild pulmonary emphysema. 4. New nonspecific right cervical, right supraclavicular, bilateral axillary, and left prevascular lymphadenopathy compared to 03/05/2013. Clinical correlation for neoplastic adenopathy such as lymphoma is recommended. 5. Stable fusiform aneurysmal dilatation of the proximal descending thoracic aorta measuring 3.7 cm in diameter, compared to 03/05/2013. 6. Please see the contemporaneously performed CT abdomen and pelvis 02/14/2020 report for additional findings. Electronically signed by: Ish Nguyễn On 02/14/2020 15:37:36 PM
--- NOTE | 2020-02-14 16:06 | REPVR ---
PROCEDURE INFORMATION: Exam: CT Abdomen And Pelvis Without Contrast Exam date and time: 02/14/2020 2:46 PM Age: 64 years old Clinical indication: Altered mental status TECHNIQUE: Imaging protocol: Computed tomography of the abdomen and pelvis without contrast. Coronal and sagittal reformats were created and reviewed. Radiation optimization: All CT scans at this facility use at least one of these dose optimization techniques: automated exposure control; mA and/or kV adjustment per patient size (includes targeted exams where dose is matched to clinical indication); or iterative reconstruction. COMPARISON: CT ABD PELVIS W/O CONTRAST 01/22/2020 11:41 AM Images only; the examination report is unavailable for comparison. FINDINGS: Limitations: Noncontrast technique reduces sensitivity of CT for detecting abnormalities in the organs and vessels. Liver: The liver again appears atrophic and has diffuse nodular contour, consistent with cirrhosis. Gallbladder and bile ducts: Although the gallbladder is difficult to delineate apart from the ascites, diffuse gallbladder dilation appears present. No intrahepatic or extrahepatic bile duct dilation. Pancreas: Pancreas is unremarkable. Spleen: Splenomegaly is improved but not resolved; currently the spleen measures 14.5 cm in craniocaudal dimension previously measured 15.5 cm. Adrenals: Adrenal glands are unremarkable. Kidneys and ureters: No hydronephrosis. No nephrolithiasis. No ureteral calculus or abnormal dilation. Stomach and bowel: The stomach is decompressed; this limits evaluation of its wall thickness. Colonic diverticula. Diffuse wall thickening of the cecum through the distal transverse colon. Diffuse wall thickening of the distal descending colon and through the sigmoid colon. No evidence of bowel obstruction. Appendix: The appendix does not appear enlarged. Intraperitoneal space: Diffuse low-attenuation large ascites within the abdomen and pelvis is increased. No pneumoperitoneum. Vasculature: Widespread atherosclerotic arterial calcifications throughout the abdomen and pelvis. Fusiform infrarenal abdominal aortic aneurysm does not appear significantly changed in size currently measuring 4.6 x 4.4 cm in axial diameters and previously measuring 4.7 x 4.4 cm. Periumbilical vein and greater omental varices are redemonstrated. Lymph nodes: Increased diffuse small bowel mesenteric adenopathy. Similar large upper abdominal periportal adenopathy. New right inguinal adenopathy. Similar para-aortic adenopathy. Bladder: Urinary bladder is unremarkable. Reproductive: Nonspecific prostate calcification. Bones/joints: Multilevel degenerative spine disease. Bilateral hip osteoarthritis. Soft tissues: Unremarkable. IMPRESSION: 1. Findings consistent with hepatic cirrhosis and sequela of portal hypertension. Mildly improved but not resolved splenomegaly. Redemonstration of abdominal varices. 2. Increased large ascites. 3. Nonspecific widespread colonic wall thickening. The findings may be secondary to portal hypertensive colopathy. Colitis could also be considered. 4. Overall worsened abdominal and pelvic lymphadenopathy as described. Adenopathy secondary to neoplasm such as lymphoma is not excluded. 5. Nonspecific gallbladder dilation. This may be secondary to fasting. If there is clinical concern for acute cystic duct obstruction, then prompt further evaluation with gallbladder ultrasound is recommended. 6. Stable infrarenal abdominal aortic 4.6 cm aneurysm, compared to 01/22/2020. 7. Please see the contemporaneously performed chest CT 02/14/2020 report for additional findings. Electronically signed by: Ish Nguyễn On 02/14/2020 16:05:42 PM
[2020-02-14] MEDS ORDERED: MORPHINE 10MG/0.5ML ORAL CONCENTRATE SOLUTION U/D SL PRN (16:30)
[2020-02-14] MEDS ORDERED: ATROPINE SULFATE 1% OP SOLN 2 ML BTL SL PRN (16:30)
[2020-02-14] MEDS ORDERED: LORazepam 1 MG TAB PO PRN (16:30)
[2020-02-14] MEDS ORDERED: ONDANSETRON 4 MG ORAL DISINTEGRATING TAB PO PRN (16:30)
[2020-02-14] MEDS ORDERED: ONDANSETRON 4MG/2ML VIAL IV PRN (16:30)
[2020-02-14] MEDS ORDERED: HYOSCYAMINE SULFATE 0.125 MG SUBL TABLET PO PRN (16:30)
[2020-02-14] MEDS ORDERED: ACETAMINOPHEN 650 MG SUPP PR PRN (16:30)
[2020-02-14] MEDS ORDERED: SCOPOLAMINE 1MG TRANSDERMAL PATCH TOP PRN (16:30)
[2020-02-14] MEDS ORDERED: ACETAMINOPHEN TAB 650MG DOSE (2X325MG) PO PRN (16:30)
[2020-02-14] MEDS ORDERED: BISACODYL 10 MG SUPP PR PRN (16:30)
[2020-02-14] MEDS ORDERED: MORPHINE SULF IN 0.9% NACL 100 MG in IV 1 EA IV SCH ×2 (17:00)
[2020-02-14] MEDS ORDERED: MORPHINE 2 MG/ML 1ML VIAL (J2270) IV ONE (17:45)
[2020-02-14 18:50] VITALS: BP 100/66
[2020-02-14] MEDS: LORazepam 2 MG/ML VIAL IV PRN ×2 (20:18→22:57)
[2020-02-14] MEDS: MORPHINE 2 MG/ML 1ML VIAL (J2270) IV PRN (20:18)
[2020-02-15] MEDS: MORPHINE 2 MG/ML 1ML VIAL (J2270) IV PRN (03:20)
--- NOTE | 2020-02-22 11:23 | ECGEPIP ---
[facility] - ED Test Date: 2020-02-14 Pat Name: SARINA REDD Department: Room: - Gender: Male [employer] Developer: : 1955 Requested By: Brooks Patel Order Number: [id number] Reading MD: Brooks Patel Measurements Intervals [place] Rate: 95 P: 78 [place]: 177 QRS: 19 QRSD: 90 T: 55 QT: 353 QTc: 446 Interpretive Statements SINUS RHYTHM LOW QRS VOLTAGE SEPTAL MYOCARDIAL INFARCTION, PROBABLY OLD INTERPRETATION BASED ON A DEFAULT AGE OF 40 YEARS NONSPECIFIC STTD PRIOR EKG NOT AVAILABLE DUE TO DOWNTIME SEE SCANNED DOWNTIME REPORT
== END 2020-02-15 04:15 | disposition expired | DRG 469 ==
LOC: EDBD 13:47 → M ED 13:47 → EDSEX 13:47 → M ED INP 17:45 → M MS5PR 21:12
PROVIDERS: ADMIT Internal Medicine; ATTEND Internal Medicine
DX: N17.9 Acute kidney failure, unspecified (principal); K72.91 Hepatic failure, unspecified with coma; K70.31 Alcoholic cirrhosis of liver with ascites; Z91.013 Allergy to seafood; Z79.899 Other long term (current) drug therapy